=== PATIENT | female | born 1955 | race Caucasian/White ===

== ENCOUNTER → 2017-01-14 | Outpatient (CLI) | payer OTHER ==
[2017-01-14 12:54] LABS: CHOLESTEROL/HDL RATIO 8.3
== END | disposition home or self-care (01) ==
LOC: C.LABPBG 10:20
PROVIDERS: ATTEND Family Medicine
DX: E78.00 Pure hypercholesterolemia, unspecified (principal)

== ENCOUNTER → 2017-01-31 | Outpatient (CLI) | payer OTHER | END | disposition home or self-care (01) | LOC: C.CPL 18:03 | PROVIDERS: ATTEND Orthopaedic Surgery | DX: M19.042 Primary osteoarthritis, left hand (principal) ==

== ENCOUNTER 2019-06-05 10:07 | Inpatient (IN) ==
--- NOTE | 2019-05-21 11:03 | History & Physical Report ---
Date of Service May 21, 2019 date of surgery: 06-05-19 Assessment & Plan (1) Arthritis of right shoulder region: presents with continued pain in her right shoulder, had scope done 1 year ago with no improvement, has had previous cortisone injections and visco injections as well with no relief, we discussed her options, will proceed with right shoulder resurfacing hemiarthroplasty as well as left shoulder cortisone injection. Risks and benefits of the surgery discussed in detail, will plan on HHPT after discharge, f/u in the office 2 weeks post-op. she has no other questions or concerns. (2) Left shoulder pain: History of Present Illness Chief Complaint: Bilateral shoulder pain Primary Care Provider: Shawna Neely MD Ms Acuna is a 63 year old female who complains of bilateral shoulder pain, right greater than left, and presents for pre-op evaluation prior to a right shoulder resurfacing hemiarthroplasty and left shoulder cortisone injection at [facility]. She presents with pain and decreased ROM on the right side. She states that the symptoms have been chronic non-traumatic and her pain is constant. Currently the patient states that the symptoms are moderate-severe. The pain is described as aching and sharp. She rates her current pain as 8/10. The symptoms are aggravated by daily activities, driving, lifting away from the body, moving the arm suddenly, reaching overhead and repetitive activities. Prior NSAIDs include ibuprofen. 08-10-18: Right shoulder arthroscopic rotator cuff debridement of articular side cuff tear. she has failed conservative measures including cortisone injection as well as previous arthroscopy. she has also had previous Sample Visco injection. 2. left shoulder pain She also complains of pain on the left side and states that the symptoms have been chronic non-traumatic. Currently she states that the symptoms are moderate. The pain is described as aching and sharp. She rates her current pain as 6/10. The symptoms are aggravated by daily activities, lifting, lifting away from the body, moving the arm suddenly and reaching overhead. 07-05-18: Left shoulder arthroscopic subacromial decompression, Debridement of articular side rotator cuff tear, Distal clavicle excision Allergies Allergy/AdvReac Type Severity Reaction Status Date / Time atorvastatin [From Lipitor] Allergy Mild muscle Verified 05/21/19 09:14 aches simvastatin [From Zocor] Allergy Mild Rash Verified 05/21/19 09:14 Home Medications Home Medications Medication Instructions Recorded Confirmed Type lorazepam 0.5 mg tablet 0.5 mg PO DAILY PRN #30 tab 02/02/19 05/21/19 Rx citalopram 20 mg PO QAM 02/15/19 05/21/19 History hydrocodone-acetaminophen 1 tab PO Q6H PRN 02/15/19 05/21/19 History rosuvastatin 10 mg PO QAM 02/15/19 05/21/19 History omeprazole 40 mg capsule,delayed 40 mg PO DAILY #30 cap 03/10/19 05/21/19 Rx release Past Med/Surg History Medical History Anxiety Chronic back pain Depression GERD (gastroesophageal reflux disease) 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 (not sure what kind) [place] [facility] [place] Hyperlipidemia Osteoarthritis Surgical History History of appendectomy History of colonoscopy History of esophagogastroduodenoscopy (EGD) History of left knee surgery cancerous tumor removal History of repair of anterior cruciate ligament of right knee History of repair of left rotator cuff x2 History of repair of right rotator cuff x3 History of thumb surgery left, repair of torn tendon History of tooth extraction all teeth removed History of total hysterectomy with bilateral salpingo-oophorectomy (BSO) Family History Mother Myocardial infarction Elevated blood sugar Other No family history of adverse response to anesthesia Social History Preferred Language: Samoan Communication Ability: Effective Visual Impairment: No Limitations Hearing Ability: Normal 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 Person Required: No Beliefs That Will Affect Care: None marital status: / Current Living Situation: Alone current occupational status: retired and disabled Feels Safe at Home: Yes Smoking Status: Former smoker Second Hand Exposure: Yes (father smoked) ; Hx Alcohol Use: Yes Alcohol type: wine Alcohol Intake Frequency: Rarely Hx Substance Use: No Childhood Exposure to Second-Hand Smoke: Yes Dental Care, Regularly: No Physical Activity Frequency: Does not Exercise Seatbelt Use: always Review of Systems Review of Systems: All systems reviewed & are unremarkable except as noted in HPI & below Constitutional: no fever, no chills and no sweats Respiratory: no cough and no dyspnea Cardiovascular: no chest pain, no dyspnea and no orthopnea Gastrointestinal: no abdominal pain, no nausea and no vomiting Musculoskeletal: as per Subjective / HPI Physical Exam Physical Exam: Ht: 61 inches Wt: 170 lbs BP: 132/72 Pulse: 76 Constitutional: WD/WN, vitals as above no acute distress Respiratory: normal respiratory effort, lungs clear to auscultation no respiratory distress, no labored breathing and does not use accessory muscles Cardiovascular: RRR, no murmur, no edema Gastrointestinal (Abdomen): normal bowel sounds, soft, nontender, no hepatosplenomegaly Musculoskeletal: Right Shoulder Physical Exam Elbow- full painless range of motion, no tenderness. Shoulder: there is no ecchymosis, positive Crepitation with active motion, Tenderness anterior aspect shoulder and AC joint. Belly press - Positive. Patton Positive. Cross Body Positive. Neer's - positive. Strength tests - External rotation 4/5, Supraspinatus 4/5 no atrophy, Right shoulder ROM: Active ROM - Flexion: 120 degrees, Ext Rot 90 Flex: 30 degrees, Abduction: 45 degrees, Factors: pain, Description: Pain with ROM. Passive ROM - Factors: pain. Neurovascular- Radial pulse palpable, radial/median/ulnar nerves intact. Left Shoulder- there is no ecchymosis or erythema noted, no crepitation with active motion, Tenderness anterior aspect shoulder, subacromial space and the AC joint. Belly press - Positive. Patton Positive. Cross Body Positive. Neer's - positive. Strength tests - External rotation 4/5, Supraspinatus 4/5 no atrophy ROM left shoulder- Active ROM - Flexion: 120 degrees, Ext Rot 90 Flex: 30 degrees, Abduction: 45 degrees, Factors: pain, Description: Pain with ROM. Passive ROM - Flexion 170 degrees, ER at 90 de degrees, pain with end range passive ROM. Results & Data Diagnostic Findings Right shoulder X-ray April 2019 showing degenerative changes noted to the right glenohumeral joint, osteophyte formation present. no acute bony pathology.
--- NOTE | 2019-05-28 15:14 | PAT Medication Instructions ---
Medication Instructions Date of Service May 28, 2019 Home Medications citalopram 20 mg PO QAM hydrocodone-acetaminophen 1 tab PO UD PRN rosuvastatin 10 mg PO QAM ibuprofen 400 mg PO UD PRN lorazepam 0.5 mg PO UD PRN omeprazole 40 mg PO QAM ASK your surgeon for instructions ibuprofen 400 mg PO UD PRN Take morning of surgery With a small sip of water, OTHERWISE NOTHING TO EAT OR DRINK AFTER MIDNIGHT: citalopram 20 mg PO QAM hydrocodone-acetaminophen 1 tab PO UD PRN (okay to take up to 4 hours prior to surgery if needed) rosuvastatin 10 mg PO QAM lorazepam 0.5 mg PO UD PRN (if needed) omeprazole 40 mg PO QAM Take evening before surgery hydrocodone-acetaminophen 1 tab PO UD PRN (if needed) lorazepam 0.5 mg PO UD PRN (if needed) Other Notes If you have any questions please call us at [phone] or [phone] or [phone] or [phone]
--- NOTE | 2019-05-29 14:04 | Anesthesiology Consultation ---
Date of Service May 29, 2019 Assessment & Plan (1) Encounter for pre-operative examination: PCP: 05/21/19: "The preoperative labs and EKG are pending and not yet available to be reviewed. Pending results will then determine cardiopulmonary risk for the planned procedure and if pt is okay to proceed as scheduled." Preop EKG used from 03/2019 at [facility]. Preop labs/CXR updated at PAT visit. Chart Review Chart Review: Acceptable Risk for Surgery (pending final PCP preop recommendations ([facility])) and Patient seen in Pre Admission Testing Teaching & Discussion Pre-Anesthesia Teaching/Discussion Notes: Instructed NPO after midnight before surgery,except medications with 15 cc of water. Medication instructions provided according to the [facility] guidelines. History Surgery Operation Date: 06/05/19 13:55 Proposed Procedures p Right Shoulder Tournier Resurfacing versus Hemiarthroplasty versus - Dom Brewster DO s Total Shoulder Arthroplasty, Left Shoulder Cortisone Injection - Dom Brewster DO Height/Weight Height: 5 ft 1 in Weight: 81.4 kg Allergies Allergy/AdvReac Type Severity Reaction Status Date / Time simvastatin [From Zocor] Allergy Unknown Rash Verified 05/25/19 14:01 atorvastatin [From Lipitor] AdvReac Unknown muscle Verified 05/25/19 14:01 aches oxycodone AdvReac Unknown Headache Verified 05/25/19 14:01 Medications Home Medications Medication Instructions Recorded Confirmed Last Taken citalopram 20 mg PO QAM 02/15/19 05/25/19 02/27/19 08:00 hydrocodone-acetaminophen 1 tab PO UD PRN 02/15/19 05/25/19 Unknown rosuvastatin 10 mg PO QAM 02/15/19 05/25/19 02/27/19 08:00 ibuprofen 400 mg PO UD PRN 05/25/19 05/25/19 Unknown lorazepam 0.5 mg PO UD PRN 05/25/19 05/25/19 Unknown omeprazole 40 mg PO QAM 05/25/19 05/25/19 Unknown Past Medical History Medical History Anxiety Chronic back pain Depression GERD (gastroesophageal reflux disease) controlled 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 (not sure what kind) removed at [facility] [place]--no chemo/radiation Hyperlipidemia Obesity Osteoarthritis Exercise / Class Metabolic Activity II 4-5 Yardwork/Stairs/Walk up hill Past Family History Family History Mother Myocardial infarction Elevated blood sugar Other No family history of adverse response to anesthesia Past Surgical History Surgical History History of appendectomy History of colonoscopy History of esophagogastroduodenoscopy (EGD) History of left knee surgery cancerous tumor removal History of repair of anterior cruciate ligament of right knee History of repair of left rotator cuff x2 History of repair of right rotator cuff x3 History of thumb surgery left, repair of torn tendon History of tooth extraction all teeth removed History of total hysterectomy with bilateral salpingo-oophorectomy (BSO) Past Anesthesia History No Hx of Anesthesia Complications and No Family Hx of Anesthesia Complications History of PONV No Hx of PONV and No Hx of Motion Sickness Social History Smoking Status: Former smoker Do You Dip or Chew Tobacco: No Smoking End Date: Quit 30+ YRS Hx Alcohol Use: Yes (RARE) Alcohol type: wine alcohol intake frequency: holidays/special occasions only Hx Substance Use: No substance use type: prescription drug Review of Systems Patient denies chest pain, shortness of breath, dyspnea on exertion, cough, wheezing, palpitations. Physical Exam Vital Signs VITALS BP 131/79 P 71 TEMP 97.9 SP02 95%RA RESP 18 PHYSICAL Full neck and c-spine range of motion. Full TMJ range of motion. TMD 3 finger breaths Mallampati Score 2 Dentition: upper/lower full dentures Lungs: clear throughout to auscultation Cardiac: regular rate and rhythm, no murmurs noted Spine: normal Carotid arteries: negative bruit Extremities: no edema Testing Laboratory Results PT 9.8 Seconds (9.0-12.0) 05/29/19 14:19 INR 1.0 (0.9-1.1) 05/29/19 14:19 APTT 26.2 Seconds (21.0-31.0) 05/29/19 14:19 Hemoglobin A1c 6.0 % (4.5-5.6) H 05/29/19 14:19 Urine Color Yellow 05/29/19 14:19 Urine Appearance Clear (Clear) 05/29/19 14:19 Urine pH 5.5 (4.5-7.5) 05/29/19 14:19 Ur Specific Gordon 1.023 (1.000-1.030) 05/29/19 14:19 Urine Protein Negative (Negative) 05/29/19 14:19 Urine Glucose (UA) Negative (Negative) 05/29/19 14:19 Urine Ketones Negative (Negative) 05/29/19 14:19 Urine Nitrite Negative (Negative) 05/29/19 14:19 Ur Leukocyte Esterase Negative (Negative) 05/29/19 14:19 Blood Type O Positive 05/29/19 14:19 Antibody Screen NEGATIVE 05/29/19 14:19 04/17/19 WBC 5.18 H/H 14.2/42.7 PLATELETS 256 SODIUM 140 POTASSIUM 3.6 CHLORIDE 108 CO2 30 BUN 8 CREATININE 0.84 GLUCOSE 118 Electrocardiogram Date: 04/17/19 Findings: + NSR @ (62) Chest X-Ray Date: 05/29/19 Findings: + NAD
--- NOTE | 2019-05-29 14:42 | XRay Report ---
XR chest Pre-admission PA/Lat HISTORY: 63 years-old Female pat preoperative exam. No acute chest complaints COMPARISON: Chest radiograph 04/17/2019 TECHNIQUE: PA and lateral views of the chest FINDINGS: Cardiomediastinal and hilar silhouettes are unchanged. There is no pneumothorax, pleural effusion, fo ronak airspace consolidation or overt pulmonary edema. Bones of the chest appear grossly intact. IMPRESSION: No acute process. ACT 112: Negative or not required by law. The above report was generated using voice recognition software. It may contain grammatical, syntax o r spelling errors. Electronically signed by: Jomar Kearney M.D. 05/29/2019 2:41 PM
[2019-05-29 15:35] LABS: Appearance Urine Clear (Clear); Bilirubin Urine Negative (Negative); Blood Urine Negative (Negative); Color Urine Yellow; Glucose Urine UA Negative (Negative); Ketones Urine Negative (Negative); Leukocyte Esterase Urine Negative (Negative); Nitrite Urine Negative (Negative); Protein Urine Negative (Negative); Specific Gravity Urine 1.023 (1.000-1.030); Urobilinogen Urine Negative (Negative); pH Urine 5.5 (4.5-7.5)
[2019-05-29 15:51] LABS: Partial Thromboplastin Time 26.2 Seconds (21.0-31.0); Prothrombin Time 9.8 Seconds (9.0-12.0)
[2019-05-30 05:50] LABS: Estimated Average Glucose 126 mg/dl
[~2019-06-05 10:07] MED LIST: ACETAMINOPHEN 500 MG TAB PO SCH; CEFAZOLIN 2000MG 2,000 MG/15 ML SYR IV SCH; CeleBREX 200 MG CAP PO SCH; FAMOTIDINE 20 MG TAB PO SCH; GABAPENTIN 600 MG DOSE PO SCH; LR 15ML/HR IV SCH; METOCLOPRAMIDE HCL 10 MG TABLET PO SCH; ROPIVACAINE 0.5% 5 MG/ML 30 ML VIAL ONE; ROPIVACAINE 0.5% HCL/PF 150 MG, BUPIVACAINE 0.5% MPF 30 ML, EPINEPHrine 30MG/30ML (OR U... INSTIL SCH; dexAMETHasone 4 MG TAB PO SCH
--- NOTE | 2019-06-05 11:17 | History & Physical Bridge Note ---
Date of Service June 05, 2019 History & Physical Bridge Note I have examined the patient, reviewed the History & Physical and in the interval since the performance of the History & Physical I have noted the following changes of clinical significance: no changes noted
[2019-06-05] MEDS ORDERED: BACITRACIN INJ 50,000 UNIT VIAL ONE ×2 (11:55→12:02)
[2019-06-05] MEDS ORDERED: THROMBIN FOR SOLN 20000 UNIT KIT ONE (11:55)
[2019-06-05] MEDS ORDERED: BUPIVACAINE 0.25% 30 ML VIAL ONE (12:01)
[2019-06-05] MEDS ORDERED: LIDOCAINE HCL 1% 20 ML VIAL ONE (12:01)
[2019-06-05] MEDS ORDERED: methylPREDNISolone acetate 80 MG/ML VIAL ONE (12:02)
[2019-06-05] MEDS ORDERED: ROCURONIUM BROMIDE 10 MG/ML 5 ML VIAL ONE (12:06)
[2019-06-05] MEDS ORDERED: MIDAZOLAM HCL 1 MG/ML 2ML VIAL ONE (12:06)
[2019-06-05] MEDS ORDERED: ONDANSETRON INJ 2 MG/ML 2 ML VIAL ONE (12:06)
[2019-06-05] MEDS ORDERED: DEXAMETHASONE SOD INJ 4 MG/ML VIAL ONE (12:06)
[2019-06-05] MEDS ORDERED: PROPOFOL IV EMULSION 10 MG/ML 20 ML VIAL IV ONE (12:06)
[2019-06-05] MEDS ORDERED: LIDOCAINE HCL 2% 2 ML VIAL/AMP(20MG/ML) INFIL ONE (12:06)
[2019-06-05] MEDS ORDERED: fentaNYL citrate 100 MCG/2 ML VIAL ONE (12:06)
[2019-06-05] MEDS ORDERED: ONDANSETRON INJ 2 MG/ML 2 ML VIAL IV PRN ×2 (12:29→16:37)
[2019-06-05] MEDS ORDERED: LABETALOL HCL IV 5 MG/ML 20ML IV PRN (12:29)
[2019-06-05] MEDS ORDERED: ATROPINE SULFATE 0.1 MG/ML 10ML SYR IV PRN (12:29)
[2019-06-05] MEDS ORDERED: KETOROLAC 30 MG/ML VIAL IV PRN (12:29)
[2019-06-05] MEDS ORDERED: FLOSEAL HEMOSTATIC MATRIX 10ML TOP ONE (14:27)
--- NOTE | 2019-06-05 14:43 | Operative Report ---
Post Operative Report Pre & Post Diagnosis Operation Date: 06/05/19 12:45 Pre-Op Diagnosis: RIGHT SHOULDER OSTEOARTHRITIS, LEFT SHOULDER PAIN Post-Op Diagnosis: RIGHT SHOULDER OSTEOARTHRITIS, LEFT SHOULDER PAIN I identified the patient and participated in the time-out.: Yes Procedure Operation Date: 06/05/19 12:45 Actual Procedures p Right Shoulder Tornier Resurfacing (Right) - Dom Brewster DO s Right Shoulder Resurfacing; Left Shoulder Cortisone Injection(Right) utilizing Tournier resurfacing hemiarthroplasty 43 x 16- Dom Brewster DO Surgeon Dom Brewster DO Data Analysis Assistant DEVANTE Manley Estimated Blood Loss 40 Findings Consistent with Post-Op Diagnosis Patient presents with glenohumeral DJD right shoulder nonresponsive to conservative management with injections Visco therapy and cortisone Visco supplementation as a time surgery she had marginal osteophytes eburnated down to eburnated bone on the humeral head the glenoid articular cartilage was in satisfactory condition decision made to perform a hemiarthroplasty. Specimens Bone and cartilage Drains Medium bore Hemovac Anesthesia Type General Regional Complications none Disposition Accompanied Patient To Recovery: No Disposition: Recovery Room Indications Patient presents with glenohumeral DJD right shoulder after failed attempts at the conservative management with physical therapy anti-inflammatories relative rest corticosteroid injection Visco supplementation and activity modification the above intraoperative findings no time surgery Description of Procedure After proper prepping draping the right shoulder region a deltopectoral incision was made dissection was then carried down to the region of deltopectoral interval the cephalic vein was isolated and was subsequently retracted lateralward's after ligation of several collateralized vessels that were penetrating medially the these were tied off with silk ties having developed the deltopectoral interval the fascia was incised the glenohumeral joint was palpated the subscapularis that was reflected off of the humeral head and retracted towards the glenoid the humeral head was socially delivered from the wound inferior posterior anterior osteophytes were all removed humeral head was inspected as was the glenoid the labrum was inspected and was in satisfactory condition subsequently having thoroughly irrigated the wound the trials of a size 43 x 16 gave anatomic fit and coverage of the head subsequently a pin was placed through the humeral head guide the right was reversed reamed to bleeding bone trial was placed excellent stability was noted in both flexion extension internal/external rotation socially the wound was irrigated once again with close muscle sterile saline solution to take as hemostasis was obtained and maintained patient had a a little bit of oozing from her bone surface of the this was all irrigated subsequently the final prosthesis brought on the field after placing three #5 FiberWire through the arch to the cortical surface of the proximal humerus out through the humeral head the humeral head sub-was subsequ ently placed and tapped into place with solid fixation the wound was irrigated the humeral head was reduced to the subscapularis tendons repaired back to the humeral head the wound was irrigated with copious muscle sterile saline solution thickness hemostasis obtained to maintain some FloSeal was placed in a deep wound decision generalized use although no active bleeding was noted the wound have been thoroughly irrigated deep medium bore Hemovacs placed in the deep wound the deltopectoral interval was closed with #0 Vicryl subcu was closed with 3-0 Vicryl skin was closed skin clips sterile compressive dressings placed in shoulder immobilizer placed please note Aston DEVANTE Bean was necessary prepping draping retraction wound closure defect subcu skin was necessary for the case I attest to the content of the Intraoperative Record and any orders documented therein. Any exceptions are noted below.
[2019-06-05] MEDS: HYDROmorphone INJ 1 MG/ML SYRINGE IV PRN ×4 (15:41→15:56)
--- NOTE | 2019-06-05 15:46 | XRay Report ---
XR shoulder RT min 2V routine CLINICAL HISTORY: 63 years-old Female presenting with Post shoulder surgery. TECHNIQUE: Frontal and transscapular Y views of the right shoulder were obtained. COMPARISON: 04/17/2019. FINDINGS: There has been interval right shoulder arthroplasty with placement of a humeral head component. Chron ic widening of the acromioclavicular joint. No acute fracture or malalignment. No malalignment of the arthroplasty. No periprosthetic fracture. ML opacities at the right lung base with overall low lung volume. IMPRESSION: 1. Expected postsurgical appearance status post right shoulder arthroplasty. 2. Chronic right AC joint separation. 3. Right basilar atelectasis in the setting of low lung volume. ACT 112: Negative or not required by law. Electronically signed by: Donovan Yeager M.D. 06/05/2019 3:45 PM
--- NOTE | 2019-06-05 16:00 | Anesthesiology Progress Note ---
Date of Service June 05, 2019 Anesthesia Post Procedure Vital Signs Vital Signs: Temp Pulse Pulse Resp BP Pulse Ox 06/05/19 15:45 81 12 105/69 94 06/05/19 15:35 36.9 C 81 14 123/74 93 06/05/19 15:25 85 16 136/74 95 06/05/19 15:15 87 17 140/77 95 06/05/19 15:07 36.6 C 93 H 16 152/98 H 93 06/05/19 10:30 36.5 C 68 20 160/97 H 94 Pain Intensity Right Shoulder: Pain Intensity: 7 Transfer of Care Handoff Completed per policy Notes Mental Status: alert / awake / arousable and participated in evaluation Patient Amnestic to Procedure: Yes Nausea / Vomiting: adequately controlled Pain: adequately controlled Airway Patency, RR, SpO2: stable & adequate BP & HR: stable & adequate Hydration State: stable & adequate Anesthetic Complications: no major complications apparent
[2019-06-05] MEDS ORDERED: NALOXONE HCL 0.4 MG/1 ML VIAL/CARP IV PRN (16:37)
[2019-06-05] MEDS ORDERED: bisacodyL 10 MG SUPP PR PRN (16:37)
[2019-06-05] MEDS ORDERED: METOCLOPRAMIDE HCL INJ 5 MG/ML 2 ML VIAL IV PRN (16:37)
[2019-06-05] MEDS ORDERED: LORazepam 0.5 MG TAB PO PRN (16:37)
[2019-06-05] MEDS ORDERED: MAGNESIUM HYDROXIDE SUSP 30 ML UDC PO PRN (16:37)
[2019-06-05] MEDS ORDERED: ALUMINUM/MAGNESIUM SUSP 30 ML UDC PO PRN (16:37)
[2019-06-05] MEDS: KETOROLAC TROMETHAMINE 15 MG/ML VIAL IV SCH ×2 (17:58→23:40)
[2019-06-05] MEDS: DOCUSATE SODIUM 100 MG CAP PO SCH (20:55)
[2019-06-05] MEDS: SENNA 8.6 MG TAB PO SCH (20:55)
[2019-06-05] MEDS: ASPIRIN 81 MG ECTAB PO SCH (20:55)
[2019-06-05] MEDS: CEFAZOLIN 2000MG 2,000 MG/15 ML SYR IV SCH (20:55)
[2019-06-05] MEDS: SODIUM CHLORIDE 0.9% 1000ML 1,000 ML IV SCH (21:32)
[2019-06-06] MEDS: HYDROCODONE/ACETAMOPHEN 5/325MG TAB PO PRN ×6 (00:50→23:19)
[2019-06-06] MEDS: KETOROLAC TROMETHAMINE 15 MG/ML VIAL IV SCH ×2 (04:54→11:01)
[2019-06-06] MEDS: CEFAZOLIN 2000MG 2,000 MG/15 ML SYR IV SCH (04:55)
[2019-06-06 05:50] LABS: Hematocrit (blood only) 38.9 % (37-47); Hemoglobin 12.7 g/dL (12.0-16.0); Immature Granulocytes # (auto) 0.02 K/uL (0.00-0.02); Immature Granulocytes % (auto) 0.2 %; Lymphocytes # (auto) 1.12 K/uL (1.2-3.4); Lymphocytes % (auto) 10.7 %; Mean Corpuscular Hemoglobin 29.3 pg (25-34); Mean Corpuscular Hgb Conc 32.6 g/dL (32-36); Mean Corpuscular Volume 89.6 fL (80-100); Mean Platelet Volume 9.5 fL (7.4-10.4); Monocytes # (auto) 0.92 K/uL (0.11-0.59); Monocytes % (auto) 8.8 %; Neutrophils # (auto) 8.37 K/uL (1.4-6.5); Neutrophils % (auto) 80.3 %; Platelet Count 267 K/uL (130-400); RDW Coefficient of Variation 12.9 % (11.5-14.5); RDW Standard Deviation 42.5 fL (36.4-46.3); Red Blood Count 4.34 M/uL (4.2-5.4); White Blood Count 10.43 K/uL (4.8-10.8)
[2019-06-06] MEDS: SODIUM CHLORIDE 0.9% 1000ML 1,000 ML IV SCH (06:07)
[2019-06-06 06:21] LABS: BUN Creatinine Ratio 12.6 (10-20); Calcium 8.2 mg/dl (8.5-10.1); Creatinine Clr Calc Pharmacy 47.7 ml/min; Est GFR (African American) 58.2; Est GFR (Non-African American) 50.2; Potassium 4.6 mmol/L (3.5-5.1)
--- NOTE | 2019-06-06 07:12 | Orthopedic Progress Note ---
Date of Service June 06, 2019 Assessment & Plan (1) Status post right shoulder hemiarthroplasty: POD #1 s/p right shoulder resurfacing PT/OT will discuss with FLAIVO randolph HHPT O2 sats in the high 80s last evening on RA, now on 2L NC, will see how she responds after supp oxygen is d/c for pending d/c today. Admission and Anticipated Discharge Date Admission Date: June 05, 2019 Subjective POD #1 s/p right shoulder resurfacing and left shoulder cortisone injection Review of Systems Constitutional: no fever and no chills Respiratory: no cough and no dyspnea Cardiovascular: no chest pain, no dyspnea and no orthopnea Gastrointestinal: no abdominal pain, no nausea and no vomiting Physical Exam Physical Exam: Vital Signs Temp 36.8 C 06/06/19 03:38 Pulse 77 06/06/19 03:38 Resp 18 06/06/19 03:38 BP 122/68 06/06/19 03:38 Pulse Ox 93 06/06/19 03:53 Intake & Output 06/05/19 06/06/19 06/06/19 18:59 06:59 18:59 Intake Total 1600 / 3066.667 1466.667 / 3066.66 7 Output Total 40 / 590 550 / 590 Balance 1560 / 2476.667 916.667 / 2476.667 Weight 81.2 kg Intake: IV 300 / 1046.667 746.667 / 1046.667 Lr 1,000 ml @ 15 mls/hr IV . 300 / 300 Q24H SABIHA Rx#:[id number] Nss 1000ML 1,0 00 ml @ 100 mls/ 746.667 / 746.667 hr IV .Q10H SC H Rx#:[id number] IV Perioperative 1300 / 1300 Oral 200 / 200 Other 520 / 520 Output: Urine 550 / 550 Estimated Blood Loss 40 / 40 Other: Other Intake Martha rce IV Fluids Constitutional: WD/WN, vitals as above no acute distress Musculoskeletal: right shoulder: Dressing clean and dry, resting in sling. rad/med/ulnar nerves intact distally, radial pulse +2, able to flex/extend elbow and wrist without pain. Results & Data ([facility]) Vital Signs (Past 12 Hours) Vital Signs Temp Pulse Resp BP Pulse Ox 06/06/19 03:53 93 06/06/19 03:38 36.8 C 77 18 122/68 90 06/06/19 01:16 92 06/06/19 01:15 88 L 06/06/19 00:44 90 06/05/19 23:28 36.7 C 89 17 103/68 91 06/05/19 19:54 104 H 90 06/05/19 19:30 36.7 C 104 H 16 109/68 91 Laboratory Results Laboratory Results WBC 10.43 K/uL (4.8-10.8) 06/06/19 05:23 RBC 4.34 M/uL (4.2-5.4) 06/06/19 05:23 Hgb 12.7 g/dL (12.0-16.0) 06/06/19 05:23 Hct 38.9 % (37-47) 06/06/19 05:23 MCV 89.6 fL (80-100) 06/06/19 05:23 MCH 29.3 pg (25-34) 06/06/19 05:23 MCHC 32.6 g/dL (32-36) 06/06/19 05:23 RDW Std Deviation 42.5 fL (36.4-46.3) 06/06/19 05:23 RDW Coeff of Jenna 12.9 % (11.5-14.5) 06/06/19 05:23 Plt Count 267 K/uL (130-400) 06/06/19 05:23 MPV 9.5 fL (7.4-10.4) 06/06/19 05:23 Immature Gran % (Auto) 0.2 % 06/06/19 05:23 Neut % (Auto) 80.3 % 06/06/19 05:23 Lymph % (Auto) 10.7 % 06/06/19 05:23 [place] % (Auto) 8.8 % 06/06/19 05:23 Eos % (Auto) 0.0 % 06/06/19 05:23 Baso % (Auto) 0.0 % 06/06/19 05:23 Immature Gran # (Auto) 0.02 K/uL (0.00-0.02) 06/06/19 05:23 Neut # (Auto) 8.37 K/uL (1.4-6.5) H 06/06/19 05:23 Lymph # (Auto) 1.12 K/uL (1.2-3.4) L 06/06/19 05:23 [place] # (Auto) 0.92 K/uL (0.11-0.59) H 06/06/19 05:23 Eos # (Auto) 0.00 K/uL (0-0.5) 06/06/19 05:23 Baso # (Auto) 0.00 K/uL (0-0.2) 06/06/19 05:23 PT 9.8 Seconds (9.0-12.0) 05/29/19 14:19 INR 1.0 (0.9-1.1) 05/29/19 14:19 APTT 26.2 Seconds (21.0-31.0) 05/29/19 14:19 PTT Ratio 1.0 05/29/19 14:19 Sodium 136 mmol/L (136-145) 06/06/19 05:23 Potassium 4.6 mmol/L (3.5-5.1) 06/06/19 05:23 Chloride 105 mmol/L (98-107) 06/06/19 05:23 Carbon Dioxide 27 mmol/L (21-32) 06/06/19 05:23 Anion Gap 4.0 (3-11) 06/06/19 05:23 BUN 15 mg/dl (7-18) 06/06/19 05:23 Creatinine 1.15 mg/dl (0.6-1.2) 06/06/19 05:23 Est Cr Clr Drug Dosing 47.7 ml/min 06/06/19 05:23 Est GFR ( Amer) 58.2 06/06/19 05:23 Est GFR (Non-Af Amer) 50.2 06/06/19 05:23 BUN/Creatinine Ratio 12.6 (10-20) 06/06/19 05:23 Glucose 129 mg/dl (70-99) H 06/06/19 05:23 Estimat Average Glucose 126 mg/dl 05/29/19 14:19 Hemoglobin A1c 6.0 % (4.5-5.6) H 05/29/19 14:19 Calcium 8.2 mg/dl (8.5-10.1) L 06/06/19 05:23 Urine Color Yellow 05/29/19 14:19 Urine Appearance Clear (Clear) 05/29/19 14:19 Urine pH 5.5 (4.5-7.5) 05/29/19 14:19 Ur Specific [place] 1.023 (1.000-1.030) 05/29/19 14:19 Urine Protein Negative (Negative) 05/29/19 14:19 Urine Glucose (UA) Negative (Negative) 05/29/19 14:19 Urine Ketones Negative (Negative) 05/29/19 14:19 Urine Blood Negative (Negative) 05/29/19 14:19 Urine Nitrite Negative (Negative) 05/29/19 14:19 Urine Bilirubin Negative (Negative) 05/29/19 14:19 Urine Urobilinogen Negative (Negative) 05/29/19 14:19 Ur Leukocyte Esterase Negative (Negative) 05/29/19 14:19 Blood Type O Positive 05/29/19 14:19 Antibody Screen NEGATIVE 05/29/19 14:19 Diagnostic Findings XR shoulder RT min 2V routine CLINICAL HISTORY: 63 years-old Female presenting with Post shoulder surgery. TECHNIQUE: Frontal and transscapular Y views of the right shoulder were obtained. COMPARISON: 04/17/2019. FINDINGS: There has been interval right shoulder arthroplasty with placement of a humeral head component. Chronic widening of the acromioclavicular joint. No acute fracture or malalignment. No malalignment of the arthroplasty. No periprosthetic fracture. ML opacities at the right lung base with overall low lung volume. IMPRESSION: 1. Expected postsurgical appearance status post right shoulder arthroplasty. 2. Chronic right AC joint separation. 3. Right basilar atelectasis in the setting of low lung volume.
--- NOTE | 2019-06-06 07:40 | Anesthesiology Progress Note ---
Date of Service June 06, 2019 Anesthesia Post Procedure Vital Signs Vital Signs: Temp Pulse Pulse Pulse Resp BP Pulse Ox 06/06/19 03:53 93 06/06/19 03:38 36.8 C 77 18 122/68 90 06/06/19 01:16 92 06/06/19 01:15 88 L 06/06/19 00:44 90 06/05/19 23:28 36.7 C 89 17 103/68 91 06/05/19 19:54 104 H 90 06/05/19 19:30 36.7 C 104 H 16 109/68 91 06/05/19 18:26 36.7 C 110 H 17 112/66 93 06/05/19 17:20 36.8 C 114 H 17 127/74 92 06/05/19 16:49 85 14 111/76 93 06/05/19 16:20 37 C 95 H 14 112/78 95 06/05/19 16:05 87 18 126/80 93 06/05/19 15:55 95 H 16 133/72 92 06/05/19 15:45 81 12 105/69 94 06/05/19 15:35 36.9 C 81 14 123/74 93 06/05/19 15:25 85 16 136/74 95 06/05/19 15:15 87 17 140/77 95 06/05/19 15:07 36.6 C 93 H 16 152/98 H 93 06/05/19 10:30 36.5 C 68 20 160/97 H 94 Pain Intensity Right Shoulder: Pain Intensity: 4 Notes Mental Status: alert / awake / arousable Patient Amnestic to Procedure: Yes Nausea / Vomiting: adequately controlled Pain: adequately controlled Airway Patency, RR, SpO2: stable & adequate BP & HR: stable & adequate Hydration State: stable & adequate Anesthetic Complications: no major complications apparent and Pt Satisfied with anesthetic care
[2019-06-06] MEDS: ROSUVASTATIN CALCIUM 10 MG TAB PO SCH (08:42)
[2019-06-06] MEDS: MULTIVITAMIN TAB PO SCH (08:42)
[2019-06-06] MEDS: DOCUSATE SODIUM 100 MG CAP PO SCH ×2 (08:42→20:05)
[2019-06-06] MEDS: CITALOPRAM 20 MG TAB PO SCH (08:43)
[2019-06-06] MEDS: ASPIRIN 81 MG ECTAB PO SCH ×2 (08:43→20:05)
[2019-06-06] MEDS ORDERED: Nursing to Pharmacy Communication ONE (09:28)
[2019-06-06] MEDS ORDERED: COUGH DROP (SUGAR FREE) LOZ 24 LOZ/1 BOX BUCCAL PRN (09:41)
[2019-06-06] MEDS: HYDROmorphone INJ 1 MG/ML SYRINGE IV PRN ×2 (12:37→16:25)
[2019-06-06] MEDS ORDERED: ACETYLCYSTEINE 20% INHAL SOLN 30ML***DISPENSED BY RESP. INH ONE (16:03)
[2019-06-06] MEDS ORDERED: ALBUT/IPRATROP 3MG/0.5MG NEB 3 ML VIAL NEB STA (16:03)
[2019-06-06] MEDS ORDERED: ALBUT/IPRATROP 3MG/0.5MG NEB 3 ML VIAL NEB PRN (16:04)
--- NOTE | 2019-06-06 16:15 | Hospitalist Consultation ---
Date of Consultation June 06, 2019 Assessment & Plan (1) Hypoxia: Hb stable, PRP WNL Possibly related to respiratory depression from increased use of narcotic pain medication Hx of tobacco use, non-smoker for >30 yrs--possibly an underlying element of COPD Nebs x1 + mucomyst, PRN nebs after CXR pending given recent post-op status CXR neg for acute on 05/29 Ongoing IS VSS otherwise making PE less likely, no chest pain--holding on CTA for now Pt has aspirin 81mg listed on home meds, states she did not take this [employer]OCIATE Pt also has cefadroxil listed, denies recent abx use or c/o infection (2) Status post right shoulder hemiarthroplasty: s/p R shoulder surgery on 06/[address] Brewster As per ortho (3) Left shoulder pain: s/p L shoulder cortisone injection on 06/[address] Brewster (4) Hypercholesterolemia: continue home meds (5) Depression with anxiety: continue home meds (6) Acid reflux disease: continue home meds (7) DVT prophylaxis: As per ortho History of Present Illness Attending Physician: Dom Brewster DO History of Present Illness 63 y/o F who was admitted on 06/05 s/p R shoulder surgery and L shoulder cortisone injection with Dr. Brewster. Pt is overall doing well post-op, however she has been having some SOB with exertion with O2 sats dropping to 88% on RA with ambulation. She states she has been using her IS frequently and regularly, trying to achieve the 10x/hour goal. She states she has been able to "get it to the top" most of the time. She states she had a coughing episode a bit ago and "felt like something broke loose" but she couldn't bring it up. No prior hx of breathing issues. Tolerating PO without issue. Pt denies fever, chest pain, abd pain, n/v/c/d, LE swelling or pain. Pt notes that she has been having increased pain and using more of the narcotic pain medication today. Nursing states that the O2 sats are lower after her pain medications. Pt does have oxycodone at home for PRN use prior to the OR, but that she rarely uses it. She states she relies on ibuprofen for daily use and the oxycodone only "if it is really bad". Allergies Allergy/AdvReac Type Severity Reaction Status Date / Time simvastatin [From Zocor] Allergy Unknown Rash Verified 06/05/19 10:24 atorvastatin [From Lipitor] AdvReac Unknown muscle Verified 06/05/19 10:24 aches oxycodone AdvReac Unknown Headache Verified 06/05/19 10:24 Home Medications Home Medications Medication Instructions Recorded Confirmed Type citalopram 20 mg PO QAM 02/15/19 06/05/19 History hydrocodone-acetaminophen 1 tab PO UD PRN 02/15/19 06/05/19 History ibuprofen 400 mg PO UD PRN 05/25/19 06/05/19 History lorazepam 0.5 mg PO UD PRN 05/25/19 06/05/19 History omeprazole 40 mg PO QAM 05/25/19 06/05/19 History rosuvastatin 10 mg tablet 10 mg PO DAILY #90 tab 06/04/19 06/05/19 Rx aspirin [Ecotrin Low Strength] 81 mg PO BID 30 Days #60 tab 06/06/19 Rx cefadroxil 500 mg PO BID 10 Days #20 cap 06/06/19 Rx celecoxib [Celebrex] 200 mg PO BID 30 Days #60 cap 06/06/19 Rx docusate sodium 100 mg PO BID 10 Days #20 cap 06/06/19 Rx hydrocodone-acetaminophen [[place]] 1 - 2 tab PO Q6H PRN #30 tab 06/06/19 Rx Patient History Medical History Anxiety Chronic back pain Depression GERD (gastroesophageal reflux disease) controlled 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 (not sure what kind) removed at [facility]--no chemo/radiation Hyperlipidemia Obesity Osteoarthritis Surgical History History of appendectomy History of colonoscopy History of esophagogastroduodenoscopy (EGD) History of left knee surgery cancerous tumor removal History of repair of anterior cruciate ligament of right knee History of repair of left rotator cuff x2 History of repair of right rotator cuff x3 History of thumb surgery left, repair of torn tendon History of tooth extraction all teeth removed History of total hysterectomy with bilateral salpingo-oophorectomy (BSO) Family History Mother Myocardial infarction Elevated blood sugar Other No family history of adverse response to anesthesia Denies family history of Ovarian cancer Prostate cancer Breast cancer Colorectal cancer Social History Preferred Language: Belgian Communication Ability: Effective Visual Impairment: No Limitations Hearing Ability: Normal 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 Beliefs That Will Affect Care: Gnosticism Gnosticism Beliefs: BUDDHISM marital status: / Current Living Situation: Alone current occupational status: retired and disabled Other Information That Helps Us Care for You: No Feels Safe at Home: Yes Smoking Status: Former smoker Do You Dip or Chew Tobacco: No ; Smoking End Date: Quit 30+ YRS ; Second Hand Exposure: Yes (father smoked) ; Hx Alcohol Use: Yes (RARE) Alcohol type: wine Alcohol Intake Frequency: Rarely Hx Substance Use: No Childhood Exposure to Second-Hand Smoke: Yes Dental Care, Regularly: No Physical Activity Frequency: Does not Exercise Seatbelt Use: always Review of Systems Review of Systems: Pertinent positives and negatives reviewed in HPI--all others negative Physical Exam Constitutional: WD/WN, vitals as above Eyes: normal visual nam by confrontation and + anicteric sclerae Neck: normal visual inspection and trachea midline Respiratory: normal respiratory effort; no respiratory distress Auscultation: + diminished lung sounds; no crackles and no wheezes Poor inspiratory effort due to pain Cardiovascular: Rate/Rhythm: regular rate and regular rhythm Gastrointestinal (Abdomen): Inspection/Auscultation: abdomen not distended Percussion/Palpation: abdomen soft; abdomen nontender Musculoskeletal: Head/Neck/Chest: normocephalic and head atraumatic negative for edema, peripheral pulses intact Skin: no rashes, warm and dry Neurologic: awake; not confused Speech / Cognition: normal speech Psychiatric: A+Ox3, euthymic affect Results & Data ([facility]) Vital Signs (Past 12 Hours) Vital Signs Temp Pulse Pulse Resp BP Pulse Ox 06/06/19 15:23 36.5 C 75 16 118/78 90 06/06/19 12:47 95 06/06/19 12:46 88 L 06/06/19 12:00 36.4 C L 80 17 127/76 94 06/06/19 09:40 95 06/06/19 07:55 36.5 C 75 18 108/72 92 PG Care Time/CCT Total # of Minutes Spent Total Time Spent with Patient: Total time spent is greater than 50% in coordination of care (as documented) at patient's floor/unit and/or counseling patient: Coding Level of Care Code 33395 Inpt Consult Level 4 Diagnoses Hypoxia R09.02 Status post right shoulder hemiarthroplasty Z96.611 Left shoulder pain M25.512 Hypercholesterolemia E78.00 Depression with anxiety F41.8 Acid reflux disease K21.9 DVT prophylaxis Z29.9
--- NOTE | 2019-06-06 17:46 | XRay Report ---
XR chest 2V PA/lateral CLINICAL HISTORY: 63 years-old Female presenting with hypoxia. TECHNIQUE: PA and lateral views of the chest were obtained. COMPARISON: 05/29/2019. FINDINGS: Atherosclerosis of the aortic arch. Cardiac silhouette mildly enlarged. Bandlike opacity at the right lung base. Elevation of the right hemidiaphragm. Left lung and pleural space grossly clear. Right sh oulder arthroplasty. Evaluation of the lateral radiograph is limited by positioning of the right arm. Upper abdomen normal. IMPRESSION: 1. Right basilar opacities likely atelectasis or scarring, new from prior. 2. Mild cardiomegaly. No volume overload or significant congestive change. ACT 112: Negative or not required by law. Electronically signed by: Donovan Yeager M.D. 06/06/2019 5:45 PM
[2019-06-06] MEDS: SENNA 8.6 MG TAB PO SCH (20:05)
[2019-06-06] MEDS ORDERED: CeleBREX 200 MG CAP PO SCH (21:00)
[2019-06-07] MEDS: HYDROmorphone INJ 1 MG/ML SYRINGE IV PRN (00:39)
[2019-06-07] MEDS: HYDROCODONE/ACETAMOPHEN 5/325MG TAB PO PRN (05:31)
[2019-06-07] MEDS ORDERED: HYDROmorphone HCL 2 MG TAB PO PRN (08:23)
[2019-06-07] MEDS ORDERED: HYDROmorphone INJ 1 MG/ML SYRINGE IV PRN (08:26)
--- NOTE | 2019-06-07 08:39 | Orthopedic Progress Note ---
Date of Service June 07, 2019 Assessment & Plan (1) Status post right shoulder hemiarthroplasty: POD #2 s/p right shoulder resurfacing PT/OT Pain control issues. Continue hydrocodone. We will add IV Toradol 15 mg every 6 hours. Decrease her IV hydromorphone to .5 mg IV every 4 hours as needed. Add Dilaudid 2 mg, 1 or 2 tabs every 4 hours as needed pain. DVT prophylaxis, aspirin twice daily, SCDs. DC planning-patient is planning for discharge to home with home health services when pain is controlled. . Admission and Anticipated Discharge Date Admission Date: June 05, 2019 Subjective Postop day 2 status post right shoulder hemiarthroplasty. Patient is awake and alert sitting up in bed. She is no longer on oxygen at this time and the latest vital signs show pulse ox at 96 on room air. Vital signs are stable. She is still having some mild to moderate pain and requiring IV Dilaudid. She was hoping to go home today however with her pain control issues, we may decide to see how she is doing this afternoon with some changes in her pain medications before letting her go home. No other complaints at this time. Physical Exam Physical Exam: Incision is clean, dry, intact. Neurovascular is intact. She has good sensation in her fingers and has good range of motion at the wrist hand and fingers. Capillary refill is less than 2 seconds. Results & Data ([facility]) Vital Signs (Past 12 Hours) Vital Signs Temp Pulse Resp BP Pulse Ox 06/07/19 07:35 36.6 C 70 16 120/74 96 06/07/19 03:24 90 06/06/19 23:15 36.6 C 72 16 116/69 93
[2019-06-07] MEDS: ROSUVASTATIN CALCIUM 10 MG TAB PO SCH (08:41)
[2019-06-07] MEDS: MULTIVITAMIN TAB PO SCH (08:41)
[2019-06-07] MEDS: DOCUSATE SODIUM 100 MG CAP PO SCH ×2 (08:41→18:53)
[2019-06-07] MEDS: CITALOPRAM 20 MG TAB PO SCH (08:42)
[2019-06-07] MEDS: ASPIRIN 81 MG ECTAB PO SCH ×2 (08:42→20:25)
[2019-06-07] MEDS: KETOROLAC TROMETHAMINE 15 MG/ML VIAL IV SCH ×3 (08:42→20:25)
--- NOTE | 2019-06-07 09:28 | Hospitalist Progress Note ---
Date of Service June 07, 2019 Assessment & Plan (1) Hypoxia: - RESOLVED - Likely some respiratory depression from pain medication - no C/O SOB/dizziness/confusion -- She does report being told she snores at home so maybe some sleep apnea component which could be exacerbated with pain medication -- She may have underlying COPD - no findings to suggest a bronchitis exacerbation on exam - could have PFTs as outpatient to assess - Continue to encourage incentive spirometer and ambulation; nebs PRN - CXR - R basilar opacity likely atelectasis - no other acute findings - no leukocytosis of fever - not favoring pneumonia at this time - Consider CTA if further hypoxia, SOB, CP - unlikely PE Awaiting adequate oral pain control. DC possibly this afternoon vs tomorrow. No medical opposition to discharge unless clinical status changes (2) Status post right shoulder hemiarthroplasty: - S/P R shoulder surgery on 06/[address] Brewster - Surgical management per primary; pain control and bowel regimen as needed - DVT prophylaxis - ASA 81 mg BID (3) Left shoulder pain: - S/P L shoulder cortisone injection on 06/[address] Brewster (4) Hypercholesterolemia: - STABLE - Continue Rosuvastatin 10 mg daily (5) Depression with anxiety: - STABLE - Continue Citalopram 20 mg daily and Ativan PRN (6) Acid reflux disease: - STABLE - Continue PPI Admission and Anticipated Discharge Date Admission Date: June 05, 2019 Anticipated date of discharge: 06/07/19 Supervising Physician Co-Signing Physician Notes PA Supervision Note: I did not personally see or examine the patient today, but I verified all camacho points of DEVANTE Mireles's assessment and plan with the following exceptions/add itions: Overnight POx study indicated to look for HANK Subjective Overall doing well today. States she did have some increased pain this AM but now is improving with medication adjustments. She is no longer requiring supplemental O2. Denies every needing this in the past. She does report occ. having phlegm she can cough and loosen but never coughs out. She states she doesn't get SOB or other symptoms when her O2 sats were lower. She is compliant with the incentive spirometer. She is tolerating a diet. No new complaints. Review of Systems Constitutional: no fever and no chills Ear, Nose, Mouth, Throat: no nasal congestion and no sore throat Respiratory: + cough (intermittent); no dyspnea Cardiovascular: no chest pain Gastrointestinal: no abdominal pain, no nausea, no vomiting, no constipation and no diarrhea/loose stools Genitourinary: no dysuria Integumentary: no rash Neurologic: no tingling and no numbness Physical Exam Constitutional: WD/WN, vitals as above Eyes: + anicteric sclerae ENMT: Ears: no hearing impairment Neck: trachea midline Respiratory: normal respiratory effort, lungs clear to auscultation Cardiovascular: RRR, no murmur, no edema Gastrointestinal (Abdomen): Inspection/Auscultation: normal bowel sounds Percussion/Palpation: abdomen soft; abdomen nontender Musculoskeletal: Head/Neck/Chest: normocephalic and head atraumatic R arm in sling with movement to fingers Skin: no rashes, warm and dry Neurologic: moves all extremities (did not move RUE but movement to fingers noted) Psychiatric: A+Ox3, euthymic affect Results & Data ([facility]) Vital Signs (Past 12 Hours) Vital Signs Temp Pulse Resp BP Pulse Ox 06/07/19 07:35 36.6 C 70 16 120/74 96 06/07/19 03:24 90 06/06/19 23:15 36.6 C 72 16 116/69 93 PG Care Time/CCT Total # of Minutes Spent Total Time Spent with Patient: Total time spent is greater than 50% in coordination of care (as documented) at patient's floor/unit and/or counseling patient: Coding Level of Care Code 54362 Inpt Consult Level 2 Diagnoses Hypoxia R09.02 Status post right shoulder hemiarthroplasty Z96.611 Left shoulder pain M25.512 Hypercholesterolemia E78.00 Depression with anxiety F41.8 Acid reflux disease K21.9
[2019-06-07] MEDS: HYDROmorphone HCL 2 MG TAB PO PRN ×4 (13:37→23:37)
[2019-06-07 15:21] VITALS: TEMP 98.4
[2019-06-07] MEDS: SENNA 8.6 MG TAB PO SCH (18:53)
[2019-06-07 23:21] VITALS: O2SAT 91
[2019-06-08] MEDS: KETOROLAC TROMETHAMINE 15 MG/ML VIAL IV SCH ×2 (02:51→08:32)
--- NOTE | 2019-06-08 07:16 | Orthopedic Progress Note ---
Date of Service June 08, 2019 Assessment & Plan (1) Status post right shoulder hemiarthroplasty: POD #3 s/p right shoulder resurfacing PT/OT DVT prophylaxis, aspirin twice daily, SCDs. recheck after PT today for poss discharge pending pain control O2 levels remain stable. . Admission and Anticipated Discharge Date Admission Date: June 05, 2019 Anticipated date of discharge: 06/07/19 Subjective Postop day 3 status post right shoulder hemiarthroplasty. denies CP/SOB. denies fever chills. pain better controlled this am. Physical Exam Physical Exam: Vital Signs Temp 36.9 C 06/07/19 23:16 Pulse 84 06/07/19 23:16 Resp 17 06/07/19 23:16 BP 148/88 H 06/07/19 23:16 Pulse Ox 91 06/07/19 23:16 Intake & Output 06/07/19 06/08/19 06/08/19 18:59 06:59 18:59 Intake Total 540 / 740 200 / 740 Balance 540 / 740 200 / 740 Intake: Oral 540 / 740 200 / 740 Other: # Unmeasured Voi ds 3 1 Constitutional: WD/WN, vitals as above no acute distress Musculoskeletal: right shoulder: NVDI, Radial +2, Prineo dressing clean dry and intact. expected post-operative bruising noted. rad/med/ulnar nerves intact Results & Data ([facility]) Vital Signs (Past 12 Hours) Vital Signs Temp Pulse Pulse Resp BP Pulse Ox Pulse Ox 06/07/19 23:16 36.9 C 84 17 148/88 H 91 06/07/19 23:10 82 90 06/07/19 21:55 77 92 Laboratory Results Laboratory Results WBC 10.43 K/uL (4.8-10.8) 06/06/19 05:23 RBC 4.34 M/uL (4.2-5.4) 06/06/19 05:23 Hgb 12.7 g/dL (12.0-16.0) 06/06/19 05:23 Hct 38.9 % (37-47) 06/06/19 05:23 MCV 89.6 fL (80-100) 06/06/19 05:23 MCH 29.3 pg (25-34) 06/06/19 05:23 MCHC 32.6 g/dL (32-36) 06/06/19 05:23 RDW Std Deviation 42.5 fL (36.4-46.3) 06/06/19 05:23 RDW Coeff of Jenna 12.9 % (11.5-14.5) 06/06/19 05:23 Plt Count 267 K/uL (130-400) 06/06/19 05:23 MPV 9.5 fL (7.4-10.4) 06/06/19 05:23 Immature Gran % (Auto) 0.2 % 06/06/19 05:23 Neut % (Auto) 80.3 % 06/06/19 05:23 Lymph % (Auto) 10.7 % 06/06/19 05:23 [place] % (Auto) 8.8 % 06/06/19 05:23 Eos % (Auto) 0.0 % 06/06/19 05:23 Baso % (Auto) 0.0 % 06/06/19 05:23 Immature Gran # (Auto) 0.02 K/uL (0.00-0.02) 06/06/19 05:23 Neut # (Auto) 8.37 K/uL (1.4-6.5) H 06/06/19 05:23 Lymph # (Auto) 1.12 K/uL (1.2-3.4) L 06/06/19 05:23 [place] # (Auto) 0.92 K/uL (0.11-0.59) H 06/06/19 05:23 Eos # (Auto) 0.00 K/uL (0-0.5) 06/06/19 05:23 Baso # (Auto) 0.00 K/uL (0-0.2) 06/06/19 05:23 PT 9.8 Seconds (9.0-12.0) 05/29/19 14:19 INR 1.0 (0.9-1.1) 05/29/19 14:19 APTT 26.2 Seconds (21.0-31.0) 05/29/19 14:19 PTT Ratio 1.0 05/29/19 14:19 Sodium 136 mmol/L (136-145) 06/06/19 05:23 Potassium 4.6 mmol/L (3.5-5.1) 06/06/19 05:23 Chloride 105 mmol/L (98-107) 06/06/19 05:23 Carbon Dioxide 27 mmol/L (21-32) 06/06/19 05:23 Anion Gap 4.0 (3-11) 06/06/19 05:23 BUN 15 mg/dl (7-18) 06/06/19 05:23 Creatinine 1.15 mg/dl (0.6-1.2) 06/06/19 05:23 Est Cr Clr Drug Dosing 47.7 ml/min 06/06/19 05:23 Est GFR ( Amer) 58.2 06/06/19 05:23 Est GFR (Non-Af Amer) 50.2 06/06/19 05:23 BUN/Creatinine Ratio 12.6 (10-20) 06/06/19 05:23 Glucose 129 mg/dl (70-99) H 06/06/19 05:23 Estimat Average Glucose 126 mg/dl 05/29/19 14:19 Hemoglobin A1c 6.0 % (4.5-5.6) H 05/29/19 14:19 Calcium 8.2 mg/dl (8.5-10.1) L 06/06/19 05:23 Urine Color Yellow 05/29/19 14:19 Urine Appearance Clear (Clear) 05/29/19 14:19 Urine pH 5.5 (4.5-7.5) 05/29/19 14:19 Ur Specific [place] 1.023 (1.000-1.030) 05/29/19 14:19 Urine Protein Negative (Negative) 05/29/19 14:19 Urine Glucose (UA) Negative (Negative) 05/29/19 14:19 Urine Ketones Negative (Negative) 05/29/19 14:19 Urine Blood Negative (Negative) 05/29/19 14:19 Urine Nitrite Negative (Negative) 05/29/19 14:19 Urine Bilirubin Negative (Negative) 05/29/19 14:19 Urine Urobilinogen Negative (Negative) 05/29/19 14:19 Ur Leukocyte Esterase Negative (Negative) 05/29/19 14:19 Blood Type O Positive 05/29/19 14:19 Antibody Screen NEGATIVE 05/29/19 14:19
[2019-06-08 07:17] VITALS: BP 125/81
[2019-06-08] MEDS: HYDROmorphone HCL 2 MG TAB PO PRN ×2 (07:29→12:39)
[2019-06-08] MEDS: ROSUVASTATIN CALCIUM 10 MG TAB PO SCH (08:32)
[2019-06-08] MEDS: ASPIRIN 81 MG ECTAB PO SCH (08:32)
[2019-06-08] MEDS: DOCUSATE SODIUM 100 MG CAP PO SCH (08:32)
[2019-06-08] MEDS: MULTIVITAMIN TAB PO SCH (08:32)
[2019-06-08] MEDS: CITALOPRAM 20 MG TAB PO SCH (08:32)
--- NOTE | 2019-06-08 09:39 | Communication Note ---
Date of Service: June 08, 2019 Discussed care with Aston Grijalva PA-C. Dr. Ashraf asking that splint on left hand be removed and that 4th/5th left fingers be jayme taped for treating 5th proximal phalanx fx. Spint removed. 4/5th left fingers jayme taped together. Pt tolerated well.
--- NOTE | 2019-06-08 12:37 | Hospitalist Progress Note ---
Date of Service June 08, 2019 Assessment & Plan (1) Hypoxia: - RESOLVED during daytime but persists and is severe nocturnally with sleep - Likely some respiratory depression from pain medication - no C/O SOB/dizziness/confusion -- She does report being told she snores at home so maybe some sleep apnea component which could be exacerbated with pain medication -- She may have underlying COPD - no findings to suggest a bronchitis exacerbation on exam - could have PFTs as outpatient to assess - Overnight pulse ox study shows significant desaturations - given Rx for 2 L NC for HS use and will be arranged with case management. Discussed needing to arrange a formalized sleep study. She does not currently carry a diagnosis of asthma/COPD but given even the remote smoking history she could; she may have some hypoventilation syndrome as well? - Would benefit from sleep study to determine if maybe BiPAP/CPAP would be more suitable for her condition - Continue to encourage incentive spirometer and ambulation - CXR - R basilar opacity likely atelectasis - no other acute findings - no leukocytosis of fever - not favoring pneumonia at this time -no signs/symptoms of PE, saturations are appropriate through the day - unlikely PE (2) Status post right shoulder hemiarthroplasty: - S/P R shoulder surgery on 06/[address] Brewster - Surgical management per primary; pain control and bowel regimen as needed - DVT prophylaxis - ASA 81 mg BID Plan to continue home medications as prescribed. Arranged for HS use of supplemental O2 for nocturnal hypoxia. No opposition from medicine for D/C home per primary service (3) HANK (obstructive sleep apnea): With significant desaturations at nighttime as above Home O2 delivered to the home on day of dc Needs formal sleep study as would benefit from CPAP (4) Left shoulder pain: - S/P L shoulder cortisone injection on 06/[address] Brewster (5) Hypercholesterolemia: - STABLE - Continue Rosuvastatin 10 mg daily (6) Depression with anxiety: - STABLE - Continue Citalopram 20 mg daily and Ativan PRN (7) Acid reflux disease: - STABLE - Continue PPI (8) DVT prophylaxis: ASA 81 bid, SCDs Dispo-medically stable for discharge to home today Admission and Anticipated Discharge Date Admission Date: June 05, 2019 Anticipated date of discharge: 06/07/19 Supervising Physician Co-Signing Physician Notes PA Supervision Note: I did not personally see or examine the patient today, but I verified all camacho points of DEVANTE Mireles's assessment and plan with the following exceptions/additions: none Subjective Reports feeling well today. Pain is better controlled but still ongoing issue. Tolerating a diet. Verbalizes no new complaints. She did have an overnight pulse ox study which resulted in desaturations as low as 61%. She states at home she doesn't sleep much. She is up most of the night watching TV or playing on her tablet. She states she sleeps sometimes only about 3 hours around 5 AM. She states she feels rested with this. Explained she really should have a formal sleep study. Review of Systems Constitutional: no fever and no chills Ear, Nose, Mouth, Throat: no sore throat and no dysphagia Respiratory: + cough (intermittent) and + snoring; no dyspnea and no wheezing Cardiovascular: no chest pain, no palpitations, no lightheadedness and no lizbet a Gastrointestinal: no abdominal pain, no nausea, no vomiting, no constipation and no diarrhea/loose stools Genitourinary: no dysuria Musculoskeletal: + joint pain (R shoulder) Integumentary: no rash Neurologic: no tingling and no numbness Physical Exam Constitutional: WD/WN, vitals as above Eyes: + anicteric sclerae ENMT: Ears: no hearing impairment Neck: trachea midline Respiratory: normal respiratory effort, lungs clear to auscultation Cardiovascular: RRR, no murmur, no edema Gastrointestinal (Abdomen): Inspection/Auscultation: normal bowel sounds Percussion/Palpation: abdomen soft; abdomen nontender Musculoskeletal: Head/Neck/Chest: normocephalic and head atraumatic Skin: no rashes, warm and dry Neurologic: moves all extremities (did not move RUE but movement to fingers noted) Psychiatric: A+Ox3, euthymic affect Results & Data ([facility]) Vital Signs (Past 12 Hours) Vital Signs Temp Pulse Resp BP Pulse Ox 06/08/19 07:16 36.9 C 83 18 125/81 91 PG Care Time/CCT Total # of Minutes Spent Total Time Spent with Patient: Total time spent is greater than 50% in coordination of care (as documented) at patient's floor/unit and/or counseling patient: Coding Level of Care Code 74233 Inpt Consult Level 2 Diagnoses Hypoxia R09.02 Status post right shoulder hemiarthroplasty Z96.611 HANK (obstructive sleep apnea) G47.33 Left shoulder pain M25.512 Hypercholesterolemia E78.00 Depression with anxiety F41.8 Acid reflux disease K21.9 DVT prophylaxis Z29.9
[2019-06-08 13:28] VITALS: PULSE 80
--- NOTE | 2019-06-08 13:33 | Discharge Summary ---
Date of Service date of discharge: June 08, 2019 date of admission: 06-05-19 Admission HPI Per Admitting Provider Ms Acuna is a 63 year old female who complains of bilateral shoulder pain, right greater than left, and presents for pre-op evaluation prior to a right shoulder resurfacing hemiarthroplasty and left shoulder cortisone injection at [facility]. She presents with pain and decreased ROM on the right side. She states that the symptoms have been chronic non-traumatic and her pain is constant. Currently the patient states that the symptoms are moderate-severe. The pain is described as aching and sharp. She rates her current pain as 8/10. The symptoms are aggravated by daily activities, driving, lifting away from the body, moving the arm suddenly, reaching overhead and repetitive activities. Prior NSAIDs include ibuprofen. 08-10-18: Right shoulder arthroscopic rotator cuff debridement of articular side cuff tear. she has failed conservative measures including cortisone injection as well as previous arthroscopy. she has also had previous Sample Visco injection. 2. left shoulder pain She also complains of pain on the left side and states that the symptoms have been chronic non-traumatic. Currently she states that the symptoms are moderate. The pain is described as aching and sharp. She rates her current pain as 6/10. The symptoms are aggravated by daily activities, lifting, lifting away from the body, moving the arm suddenly and reaching overhead. 07-05-18: Left shoulder arthroscopic subacromial decompression, Debridement of articular side rotator cuff tear, Distal clavicle excision Principal Diagnosis right shoulder osteoarthritis Discharge Exam Vital Signs Temp 36.9 C 06/08/19 13:27 Pulse 80 06/08/19 13:27 Resp 18 06/08/19 13:27 BP 125/81 06/08/19 13:27 Pulse Ox 91 06/08/19 13:27 Intake & Output 06/07/19 06/08/19 06/08/19 18:59 06:59 18:59 Intake Total 540 / 740 200 / 740 Balance 540 / 740 200 / 740 Weight 81.2 kg Intake: Oral 540 / 740 200 / 740 Other: # Unmeasured Voids 3 1 Constitutional WD/WN, vitals as above no acute distress Musculoskeletal right shoulder: NVDI, Radial +2, Prineo dressing clean dry and intact. expected post-operative bruising noted. rad/med/ulnar nerves intact Discharge Data Allergies Allergy/AdvReac Type Severity Reaction Status Date / Time simvastatin [From Zocor] Allergy Unknown Rash Verified 06/05/19 10:24 atorvastatin [From Lipitor] AdvReac Unknown muscle Verified 06/05/19 10:24 aches oxycodone AdvReac Unknown Headache Verified 06/05/19 10:24 Consultations 06/05/19 16:37 Consult Case Management - Discharge Planning Routine 06/06/19 15:19 Consult Hospitalist Routine Procedures Performed Operation Date: 06/05/19 12:45 Actual Procedures p Right Shoulder Tornier Resurfacing (Right) - Dom Brewster DO s Left Shoulder Cortisone Injection - Dom Brewster DO Ordered Studies 06/05/19 05:00 US - OR guided needle placemen Routine Hospital Course (1) Status post right shoulder hemiarthroplasty: POD #3 s/p right shoulder resurfacing PT/OT DVT prophylaxis, aspirin twice daily, SCDs. recheck after PT today for poss discharge pending pain control O2 levels remain stable. . (1) Hypoxia: - RESOLVED - Likely some respiratory depression from pain medication - no C/O SOB/dizziness/confusion -- She does report being told she snores at home so maybe some sleep apnea component which could be exacerbated with pain medication -- She may have underlying COPD - no findings to suggest a bronchitis exacerbation on exam - could have PFTs as outpatient to assess - Overnight pulse ox study shows significant desaturations - given Rx for 2 L NC for HS use and will be arranged with case management. Discussed needing to arrange a formalized sleep study. She does not currently carry a diagnosis of asthma/COPD but given even the remote smoking history she could; she may have some hypoventilation syndrome as well? - Would benefit from sleep study to determine if maybe BiPAP/CPAP would be more suitable for her condition - Continue to encourage incentive spirometer and ambulation - CXR - R basilar opacity likely atelectasis - no other acute findings - no leukocytosis of fever - not favoring pneumonia at this time - Consider CTA if further hypoxia, SOB, CP however this has not occurred and saturations are appropriate through the day - unlikely PE Total Time Total Time Spent Total Time Spent (In Minutes): 20 Total Time Includes: Examination of the Patient, Discharge Planning and Medication Reconciliation Discharge Plan Discharge Items Patient Disposition: Home - Home Health Services Reason For Visit: RIGHT SHOULDER OSTEOARTHRITIS, LEFT SHOULDER PAIN Discharge Diagnosis: right shoulder resurfacing left shoulder impingement Activity: Per Instructions section Lifting: Wait until after follow-up appointment Non-emergency contact: Surgeon Call non-emergency contact if: you have any medication questions, your temperature is above 101, your wound has increased redness, your wound has increased drainage and your wound pain has increased Follow-up/Referrals: Shawna Neely MD [Primary Care Provider] - 06/18/19 10:30 am (Please arrive for your appointment by 10:20a.m. If you need to reschedule your appointment, please call [phone].) Diet: Regular Addtl Attending Provider Instructions: ACTIVITY RECOMMENDATIONS: SELF CARE INSTRUCTIONS AFTER SHOULDER RESURFACING A. You may do daily exercises as taught in physical therapy while in hospital. No lifting with the operative arm. Please schedule your outpatient physical therapy appointment to begin within 2-3 days after leaving the hospital. Specific restrictions will be written on your physical therapy prescription that is provided to you. B. You are to wear your sling/immobilizer at all times EXCEPT when performing your daily exercises, participating in physical therapy and for hygiene purposes. C. You may perform dry, daily dressing changes. Please keep your incision covered. You may shower 48 hours after surgery. Do not apply soap or any ointme nt/lotions directly over incision. Do not soak incision in bath tub/swimming pool. D. You may use ice as needed to operative shoulder. SPECIAL CARE INSTRUCTIONS: VERY IMPORTANT TO READ AND REVIEW A. There are a few signs you need to watch for after you are home. Call [facility] at [phone] if you experience any of the followin. Increased severe shoulder pain. Some pain is expected especially when you exercise. 2. Increased swelling in you shoulder or arm; pain or swelling in either upper extremity. 3. Any fluid drainage from the incision. 4. Shortness of breath or chest pain. B. Please call [facility] at [phone] if you have any questions or concerns about your operation or recovery. C. Call your physician if: 1. Temperature is greater than 101 degrees (F). 2. Pain is not relieved by prescribed pain medications. 3. Increase drainage or redness from incision. 4. Unanswered questions or concerns. FOLLOW UP VISIT: Please call [facility] at [phone] to schedule a follow up appointment with Dr. Brewster or his PA in 12-14 days from your surgery date. Addtl Cigarette Tipper Provider Instructions: Low Oxygen Saturations: - You had some lower oxygen levels during this admission. This may be some from pain medication as opiates can cause a decrease in the drive to breathe to an extent. We see this more commonly with individuals that may have sleep apnea. Given that you have been told you snore this is a possibility. Through the day you levels have been good. However at night you drop multiple times. The ov ernight test we did is not a formal sleep study so it does not check if you stop breathing but given the oxygen levels that is a possibility. You should have a formal sleep study and likely will be called with a possible appointment. For now would recommend you use 2 L oxygen at night only when you are sleeping. Pending Studies at Discharge: No Stand-Alone Forms: My [facility], Opioid Pain Management, Smoking Cessation Medications and DC Order Prescriptions: New celecoxib [Celebrex] 200 mg Capsule 200 mg PO BID 30 Days Qty: 60 RF: 0 hydrocodone-acetaminophen [[place]] 5-325 mg Tablet 1 - 2 tab PO Q6H PRN (Reason: pain) Qty: 30 RF: 0 aspirin [Ecotrin Low Strength] 81 mg Tablet,Delayed Release (Dr/Ec) 81 mg PO BID 30 Days Qty: 60 RF: 0 docusate sodium 100 mg Capsule 100 mg PO BID 10 Days Qty: 20 RF: 0 cefadroxil 500 mg capsule 500 mg PO BID 10 Days Qty: 20 RF: 0 Continued rosuvastatin 10 mg tablet 10 mg PO DAILY Qty: 90 RF: 1 citalopram 20 mg tablet 20 mg PO QAM RF: 0 omeprazole 40 mg capsule,delayed release(DR/EC) 40 mg PO QAM RF: 0 lorazepam 0.5 mg tablet 0.5 mg PO UD PRN (Reason: anxiety) RF: 0 Discontinued hydrocodone-acetaminophen 5-325 mg Tablet 1 tab PO UD PRN (Reason: Pain) RF: 0 ibuprofen 200 mg Tablet 400 mg PO UD PRN (Reason: Pain) RF: 0 Discharge Orders: Discharge Order (Routine); Ordered 06/08/19 Ordered By: Yimi Smith/Other Patient Handouts: Prediabetes, A1C Admission Data Admit Date/Time: 06/05/19 14:59 Attending Provider: Dom Brewster Admit Provider: Dom Brewster Primary Care Provider: Shawna Neely Other Providers: Dulce Maria Villarreal Other Interventions: Discharge Summary Assessment (RN) Last Done: 06/08/19 13:27
== END 2019-06-08 14:08 | disposition home health service (06) | DRG 507 ==
LOC: ASU 10:07 → 3E 14:59
DX: G47.33 Obstructive sleep apnea (adult) (pediatric); F41.8 Other specified anxiety disorders; J98.11 Atelectasis; M19.011 Primary osteoarthritis, right shoulder; J44.9 Chronic obstructive pulmonary disease, unspecified; Z79.899 Other long term (current) drug therapy; G47.36 Sleep related hypoventilation in conditions classified elsewhere; Z98.890 Other specified postprocedural states; K21.9 Gastro-esophageal reflux disease without esophagitis; R09.02 Hypoxemia; E66.9 Obesity, unspecified; Z79.1 Long term (current) use of non-steroidal anti-inflammatories (NSAID); Z68.33 Body mass index [BMI] 33.0-33.9, adult; Z88.8 Allergy status to other drugs, medicaments and biological substances; T40.2X5A Adverse effect of other opioids, initial encounter; E78.00 Pure hypercholesterolemia, unspecified; Z87.891 Personal history of nicotine dependence; M25.812 Other specified joint disorders, left shoulder

== ENCOUNTER 2022-09-21 13:42 | Inpatient (IN) ==
[2022-09-21] MEDS ORDERED: OPTIRAY 320 500ml IV ONE (13:52)
[2022-09-21] MEDS ORDERED: LABETALOL HCL IV 5 MG/ML 20ML IV ONE (13:57)
--- NOTE | 2022-09-21 14:01 | CT Scan Report ---
CT SCAN OF THE BRAIN WITHOUT IV CONTRAST CLINICAL HISTORY: Neurological deficit. Stroke like symptoms. COMPARISON STUDY: No priors. TECHNIQUE: Unenhanced axial CT scan of the brain is performed from the vertex to the skull base. A do se lowering technique was utilized adhering to the principles of ALARA. FINDINGS: Brain parenchyma: There is age-related involutional change noting mild subcortical and periventricula r microangiopathic disease. There is no hemorrhage, mass effect, or evidence of acute territorial isc hemia by CT criteria. Melendez-white matter differentiation is preserved. No extra-axial fluid collection is seen. Ventricles, sulci, cisterns: Prominent secondary to involutional change. Intracranial vasculature: There is atherosclerotic calcification of the cavernous carotid arteries. Calvarium: Unremarkable. Sinuses and mastoids: There is mild mucosal thickening in the ethmoid sinuses. The remaining visualiz ed paranasal sinuses are clear. The mastoid air cells are well pneumatized. Orbits: The bony orbits are grossly intact. IMPRESSION: There is no hemorrhage, mass effect, or evidence of acute territorial ischemia by CT benedict melendez. ACT 112: Negative or not required by law. Electronically signed by: David Vanessa M.D. 09/21/2022 2:00 PM
[2022-09-21] MEDS: LABETALOL HCL IV 5 MG/ML 20ML IV STA ×2 (14:02→15:29)
--- NOTE | 2022-09-21 14:12 | CT Scan Report ---
NECK CTA HISTORY: neuro deficit, acute stroke suspected TECHNIQUE: Multiaxial CT images of the neck were performed following the intravenous administration o f contrast to evaluate the major cervical vessels. Maximum intensity projection images were also obta ined. All measurements were calculated based on NASCET criteria. A dose lowering technique was utili zed adhering to the principles of ALARA. COMPARISON STUDY: None. FINDINGS: The aortic arch and proximal great vessels are widely patent. There is no significant sten osis, occlusion, or dissection identified within the bilateral common carotid, internal carotid, or v ertebral arteries. There are few small thyroid nodules with the largest in the left measuring 11 mm. These do not meet CT criteria for follow-up. There is a focal bifurcation/fenestration within the dis mariely right vertebral artery at the C3 level. This is considered to be a normal variant. IMPRESSION: No significant stenosis, occlusion, or dissection identified within the carotid or vertebral arteries . ACT 112: Negative or not required by law. Electronically signed by: Guzman Ghosh M.D. 09/21/2022 2:11 PM
--- NOTE | 2022-09-21 14:13 | CT Scan Report ---
CTA ANGIOGRAPHY OF THE HEAD CLINICAL HISTORY: neuro deficit, acute stroke suspected COMPARISON STUDY: No previous studies for comparison. TECHNIQUE: Helical axial images of the head were obtained following uneventful intravenous administr ation of 120 cc of Optiray. Sagittal and coronal reconstructions were viewed as well as maximal inten sity projections on an independent 3-D workstation. Automated exposure control was utilized for the study. A dose lowering technique was utilized adhering to the principles of ALARA. CT DOSE: 1125.08 mGy.cm FINDINGS: No acute intracranial hemorrhage is identified on the head CT which will be reported separa tely. Ventricular system is normal. Basal cisterns are patent. There are no extra-axial collections. The bilateral M1, M2, A1 and A2 segments are patent. 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 Posterior circulation is intact with no central vessel occlusion. There is no intracranial aneurysm. Major dural sinuses are patent. There is minimal plaque within the cavernous carotids. IMPRESSION: Unremarkable CTA of the head. No central vessel occlusion. No intracranial aneurysm. ACT 112: Negative or not required by law. Electronically signed by: Misael Izquierdo M.D. 09/21/2022 2:12 PM
[2022-09-21 14:15] LABS: Basophils # (auto) 0.06 K/uL (0-0.2); Basophils % (auto) 1.2 %; Eosinophils # (auto) 0.09 K/uL (0-0.50); Eosinophils % (auto) 1.8 %; Hematocrit (blood only) 41.8 % (37.0-47.0); Hemoglobin 13.7 g/dl (12.0-16.0); Immature Granulocytes # (auto) 0.01 K/uL (0.01-0.20); Immature Granulocytes % (auto) 0.2 %; Lymphocytes # (auto) 2.06 K/uL (1.2-3.4); Lymphocytes % (auto) 41.7 %; Mean Corpuscular Hemoglobin 28.7 pg (25.0-34.0); Mean Corpuscular Hgb Conc 32.8 g/dL (32.0-36.0); Mean Corpuscular Volume 87.4 fL (80.0-100.0); Monocytes # (auto) 0.76 K/uL (0.11-0.59); Monocytes % (auto) 15.4 %; Neutrophils # (auto) 1.96 K/uL (1.40-6.50); Neutrophils % (auto) 39.7 %; Platelet Count 287 K/uL (130-400); RDW Coefficient of Variation 12.3 % (11.5-14.5); RDW Standard Deviation 39.4 fL (36.4-46.3); Red Blood Count 4.78 M/uL (4.20-5.40); White Blood Count 4.94 K/ul (4.8-10.8)
--- NOTE | 2022-09-21 14:21 | Emergency Department Note ---
Impression & Plan Acute left-sided weakness, Stroke-like symptoms ED Provider Note NAME: LETICIA SANDERS AGE: 66 SEX: F : 1955 ARRIVES VIA: Ambulance INFORMANT: [Patient][EMS] ED PROVIDER(S): [David Gillette MD] Patient first seen by me at 1343 CHIEF COMPLAINT: Stroke alert HISTORY OF PRESENT ILLNESS: The patient is a 66-year-old female who did not feel well most of the day since getting up this morning. She felt markedly worse at around 1030, 3 hours and 13minutes ago when she felt her left leg and left arm were weak. She felt she was sort of falling or stumbling to the left. No facial droop or facial numbness. No speech issue. No cough or congestion or chest pain. No headache. She does present by EMS. In route, a stroke alert was called. PMHx/PSHx: See Below SOCIAL HISTORY: See Below. PHYSICAL EXAM: GENERAL: Patient is in no acute distress. HEENT: No acute trauma, normocephalic atraumatic, mucous membranes moist, no nasal congestion. NECK: No stridor, no adenopathy, no meningismus, trachea is midline. LUNGS: Clear to auscultation bilaterally, no wheeze, no rhonchi, breath sounds equal. HEART: Without murmurs gallops or rubs, regular rate and rhythm. ABDOMEN: Soft, nontender, bowel sounds positive, no peritonitis. EXTREMITIES: No cyanosis or edema, full range of motion of all the joints without pain or difficulty, no signs for acute trauma. NEUROLOGIC: Oriented x 3. She has some shakiness when lifting the left leg off the bed but no actual drift. Right leg was strong. No cerebellar dysfunction on the left or right. No left upper extremity drift. No speech slur or facial droop. Left hand grasp may be slightly weaker compared to the right SKIN: No rash, no jaundice, no diaphoresis. DIFFERENTIAL DIAGNOSIS: Stroke, TIA, intracranial bleeding, electrolyte imbalance, anemia, infection, intracranial mass, among others. EMERGENCY DEPARTMENT COURSE/PROCEDURES: Prior/Outside records reviewed: EMS notes. ECG per my interpretation: Indication was stroke. The ECG shows a normal sinus rhythm with a rate of 70. There is no ST elevation, no PVCs. The QTc was 447 Continuous Cardiac Monitoring per my interpretation: An order was placed for continuous cardiac monitoring. The monitor shows a rate of 65 with normal sinus rhythm. Critical Care Note: I have personally spent 52 minutes of critical care time in the direct management of this patient. This includes bedside care, interpretation of diagnostic studies, and testing, discussion with consultants, patient, and family members, and other required patient management activities. This 52 minutes is in excess of all separately billable procedures. MEDICAL DECISION MAKING: There is no leukocytosis or concerning anemia. There is a normal platelet count. No coagulopathy. No renal failure or significant electrolyte abnormalit y. No concerning liver enzyme elevation. COVID test returned negative. ECG showed a normal sinus rhythm, no dysrhythmia or ischemia. Brain CT showed no acute bleed or mass effect. CT angio of the head and neck did not show any significant stenosis or clot. On exam, the patient had some very subtle findings to the left upper and left lower extremity. She appears to be improved compared to when things first began. The patient states that she thinks she actually may have not been doing well even before 1030. This would put her out of the window for TNK. In addition, the patient is markedly improved with minimal deficits and thus, for these 2 reasons, she is not a candidate for TNK. A stroke alert was called on the patient prior to arrival. Dr. Mendoza of [facility] did see the patient via telemedicine. TNK was not recommended for the above reasons. The patient was given a full baby aspirin at the recommendation of [facility]. This was given orally. The patient will be hospitalized for a stroke work-up. The patient understands the need for the hospital stay. Case management has been involved. The on-call hospitalist was consulted. DISPOSITION: The patient's presentation and findings warrant a hospital stay. 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 (not sure what kind[place] [facility] [place] Hyperlipidemia Obesity HANK (obstructive sleep apnea) Osteoarthritis Surgical History History of appendectomy History of colonoscopy History of esophagogastroduodenoscopy (EGD) History of left knee surgery History of repair of anterior cruciate ligament of right knee History of repair of left rotator cuff History of repair of right rotator cuff History of thumb surgery History of tooth extraction History of total hysterectomy with bilateral salpingo-oophorectomy (BSO) S/P shoulder surgery Status post right shoulder hemiarthroplasty Family History Mother Myocardial infarction Elevated blood sugar Other No family history of adverse response to anesthesia Denies family history of Ovarian cancer Prostate cancer Breast cancer Colorectal cancer Social History Smoking Status: Never smoker Second Hand Exposure: Yes (father smoked); Do You Dip or Chew Tobacco: No; Hx Alcohol Use: Yes Alcohol type: wine Alcohol Intake Frequency: Monthly or Less Hx Substance Use: No Preferred Language: Azeri Communication Ability: Effective Visual Impairment: No Limitations Hearing Ability: Normal Wagon Driver Required: No Beliefs That Will Affect Care: Christianity Christianity Beliefs: JUDAISM marital status: / Current Living Situation: Alone current occupational status: retired and disabled How many Children do You have: 1 Feels Safe at Home: Yes Childhood Exposure to Second-Hand Smoke: Yes Diet: regular caffeine: Yes during the past year weight has: remained stable Dental Care, Regularly: No Physical Activity Frequency: Does not Exercise Seatbelt Use: sometimes Sunscreen Use: Yes Assistive Devices: Denture - Upper, Denture - Lower and Glasses Allergies Allergies Allergy/AdvReac Type Severity Reaction Status Date / Time simvastatin [From Zocor] Allergy Unknown Rash Verified 08/28/21 09:17 atorvastatin [From Lipitor] AdvReac Unknown muscle Verified 08/28/21 09:17 aches oxycodone AdvReac Unknown Headache Verified 08/28/21 09:17 Home Meds Previous Rx's Medication Instructions Recorded lorazepam 0.5 mg tablet 0.5 mg PO DAILY PRN anxiety #30 06/15/19 tabs omeprazole 40 mg capsule,delayed 40 mg PO QAM #90 caps 11/27/21 release citalopram 20 mg tablet 20 mg PO QAM #90 tabs 07/14/22 rosuvastatin 10 mg tablet 10 mg PO QAM #90 tabs 08/27/22 Results & Data (ED) Vital Signs Vital Signs - 24 hr 09/21/22 14:06 09/21/22 13:59 09/21/22 13:56 Temperature 36.8 C Temperature Source Oral Pulse Rate 66 75 74 Pulse Rate from SpO2 Sensor 74 Respiratory Rate 18 20 Blood Pressure Blood Pressure Mean Pulse Oximetry 99 98 Sepsis Recent Fever Within 48 Hours No Sepsis New/Unexplained Change in Mental Status No Sepsis Action Taken by Nursing No Action Required 09/21/22 14:00 09/21/22 14:04 09/21/22 14:04 Temperature Temperature Source Pulse Rate 69 71 Pulse Rate from SpO2 Sensor 69 71 Respiratory Rate 16 13 Blood Pressure 164/80 H Blood Pressure Mean 108 Pulse Oximetry 95 96 Sepsis Recent Fever Within 48 Hours Sepsis New/Unexplained Change in Mental Status Sepsis Action Taken by Nursing 09/21/22 14:10 09/21/22 14:10 09/21/22 14:15 Temperature Temperature Source Pulse Rate 65 67 Pulse Rate from SpO2 Sensor 66 69 Respiratory Rate 20 14 Blood Pressure 179/123 H Blood Pressure Mean 141 Pulse Oximetry 95 95 Sepsis Recent Fever Within 48 Hours Sepsis New/Unexplained Change in Mental Status Sepsis Action Taken by Nursing 09/21/22 14:20 09/21/22 14:20 09/21/22 14:30 Temperature Temperature Source Pulse Rate 65 Pulse Rate from SpO2 Sensor 68 Respiratory Rate 16 Blood Pressure 195/105 H 154/97 H Blood Pressure Mean 135 116 Pulse Oximetry 96 Sepsis Recent Fever Within 48 Hours Sepsis New/Unexplained Change in Mental Status Sepsis Action Taken by Nursing 09/21/22 14:30 09/21/22 14:40 09/21/22 14:40 Temperature Temperature Source Pulse Rate 63 67 Pulse Rate from SpO2 Sensor 64 66 Respiratory Rate 13 17 Blood Pressure 152/93 H Blood Pressure Mean 112 Pulse Oximetry 95 96 Sepsis Recent Fever Within 48 Hours Sepsis New/Unexplained Change in Mental Status Sepsis Action Taken by Nursing 09/21/22 14:45 09/21/22 14:51 09/21/22 14:53 Temperature Temperature Source Pulse Rate 66 67 69 Pulse Rate from SpO2 Sensor 67 70 70 Respiratory Rate 18 16 24 Blood Pressure Blood Pressure Mean Pulse Oximetry 95 96 96 Sepsis Recent Fever Within 48 Hours Sepsis New/Unexplained Change in Mental Status Sepsis Action Taken by Long-Term Medications Current Medication List: was personally reviewed by me Laboratory Data Attestation: I reviewed the patient's lab results. 09/21/22 14:01 09/21/22 14:01 Lab Results 09/21/22 09/21/22 09/21/22 Range/Units 13:58 14:01 14:01 WBC 4.94 (4.8-10.8) K/ul RBC 4.78 (4.20-5.40) M/uL Hgb 13.7 (12.0-16.0) g/dl Hct 41.8 (37.0-47.0) % MCV 87.4 (80.0-100.0) fL MCH 28.7 (25.0-34.0) pg MCHC 32.8 (32.0-36.0) g/dL RDW Std Deviation 39.4 (36.4-46.3) fL RDW Coeff of Jenna 12.3 (11.5-14.5) % Plt Count 287 (130-400) K/uL MPV 9.0 L (9.4-12.4) fL Immature Gran % (Auto) 0.2 % Neut % (Auto) 39.7 % Lymph % (Auto) 41.7 % Carlisle % (Auto) 15.4 % Eos % (Auto) 1.8 % Baso % (Auto) 1.2 % Neut # (Auto) 1.96 (1.40-6.50) K/uL Lymph # (Auto) 2.06 (1.2-3.4) K/uL Carlisle # (Auto) 0.76 H (0.11-0.59) K/uL Eos # (Auto) 0.09 (0-0.50) K/uL Baso # (Auto) 0.06 (0-0.2) K/uL Immature Gran # (Auto) 0.01 (0.01-0.20) K/uL PT (9.0-12.0) Seconds INR (0.9-1.1) APTT (21.0-31.0) Seconds PTT Ratio Sodium (136-145) mmol/L Potassium (3.5-5.1) mmol/L Chloride (98-107) mmol/L Carbon Dioxide (21-32) mmol/L Anion Gap (3-11) BUN (6-23) mg/dl Creatinine (0.6-1.2) mg/dl Est Cr Clr Drug Dosing ml/min Est GFR ( Amer) ml/min Est GFR (Non-Af Amer) ml/min BUN/Creatinine Ratio (10-20) Glucose (70-99(Fasting)) mg/dl POC Glucose 77 (70-99) mg/dl Calcium (8.6-10.3) mg/dl Magnesium (1.7-2.4) mg/dl Total Bilirubin (0.2-1.0) mg/dl AST (13-39) U/L ALT (7-52) U/L Alkaline Phosphatase (34-104) U/L Total Protein (6.0-8.3) gm/dl Albumin (3.4-5.0) gm/dl Globulin (2.5-4.0) gm/dl Albumin/Globulin Ratio (0.9-2) SARS-CoV-2, RNA, NAAT (NEGATIVE) Blood Type O Positive Antibody Screen NEGATIVE 09/21/22 09/21/22 09/21/22 Range/Units 14:01 14:01 14:12 WBC (4.8-10.8) K/ul RBC (4.20-5.40) M/uL Hgb (12.0-16.0) g/dl Hct (37.0-47.0) % MCV (80.0-100.0) fL MCH (25.0-34.0) pg MCHC (32.0-36.0) g/dL RDW Std Deviation (36.4-46.3) fL RDW Coeff of Jenna (11.5-14.5) % Plt Count (130-400) K/uL MPV (9.4-12.4) fL Immature Gran % (Auto) % Neut % (Auto) % Lymph % (Auto) % Carlisle % (Auto) % Eos % (Auto) % Baso % (Auto) % Neut # (Auto) (1.40-6.50) K/uL Lymph # (Auto) (1.2-3.4) K/uL Carlisle # (Auto) (0.11-0.59) K/uL Eos # (Auto) (0-0.50) K/uL Baso # (Auto) (0-0.2) K/uL Immature Gran # (Auto) (0.01-0.20) K/uL PT 10.9 (9.0-12.0) Seconds INR 1.0 (0.9-1.1) APTT 26.6 (21.0-31.0) Seconds PTT Ratio 0.9 Sodium 134 L (136-145) mmol/L Potassium 4.0 (3.5-5.1) mmol/L Chloride 103 (98-107) mmol/L Carbon Dioxide 26 (21-32) mmol/L Anion Gap 5 (3-11) BUN 12 (6-23) mg/dl Creatinine 0.88 (0.6-1.2) mg/dl Est Cr Clr Drug Dosing 59.9 ml/min Est GFR ( Amer) 78.8 ml/min Est GFR (Non-Af Amer) 68.0 ml/min BUN/Creatinine Ratio 13.6 (10-20) Glucose 84 (70-99(Fasting)) mg/dl POC Glucose (70-99) mg/dl Calcium 8.3 L (8.6-10.3) mg/dl Magnesium 2.0 (1.7-2.4) mg/dl Total Bilirubin 0.4 (0.2-1.0) mg/dl AST 14 (13-39) U/L ALT 10 (7-52) U/L Alkaline Phosphatase 63 (34-104) U/L Total Protein 6.2 (6.0-8.3) gm/dl Albumin 3.6 (3.4-5.0) gm/dl Globulin 2.6 (2.5-4.0) gm/dl Albumin/Globulin Ratio 1.4 (0.9-2) SARS-CoV-2, RNA, NAAT NEGATIVE (NEGATIVE) Blood Type Antibody Screen Administered Medications Discontinued Medications Aspirin (Aspirin Chew 324 Mg) 324 mg PO NOW STA Stop: 09/21/22 14:52 Last Admin: 09/21/22 15:24 Dose: 324 mg Documented By: ZORAN Ioversol (Optiray 320 500ml) 120 ml IV ONCE ONE Stop: 09/21/22 13:53 Last Admin: 09/21/22 13:52 Dose: 120 ml Documented By: COLT Labetalol HCl (Labetalol Hcl Iv 5 Mg/Ml 20ml) Confirm Administered Dose 10 mg IV .STK-MED ONE Stop: 09/21/22 13:58 Last Admin: 09/21/22 14:02 Dose: Not Given Documented By: BA Imaging Data Radiologist's Impression: Head CT 09/21/22 13:29 CT SCAN OF THE BRAIN WITHOUT IV CONTRAST CLINICAL HISTORY: Neurological deficit. Stroke like symptoms. COMPARISON STUDY: No priors. TECHNIQUE: Unenhanced axial CT scan of the brain is performed from the vertex to the skull base. A dose lowering technique was utilized adhering to the principles of ALARA. FINDINGS: Brain parenchyma: There is age-related involutional change noting mild subcortical and periventricular microangiopathic disease. There is no hemorrhage, mass effect, or evidence of acute territorial ischemia by CT criteria. Melendez-white matter differentiation is preserved. No extra-axial fluid collection is seen. Ventricles, sulci, cisterns: Prominent secondary to involutional change. Intracranial vasculature: There is atherosclerotic calcification of the cavernous carotid arteries. Calvarium: Unremarkable. Sinuses and mastoids: There is mild mucosal thickening in the ethmoid sinuses. The remaining visualized paranasal sinuses are clear. The mastoid air cells are well pneumatized. Orbits: The bony orbits are grossly intact. IMPRESSION: There is no hemorrhage, mass effect, or evidence of acute territorial ischemia by CT criteria. ACT 112: Negative or not required by law. Electronically signed by: David Vanessa M.D. 09/21/2022 2:00 PM Head CTA 09/21/22 13:29 CTA ANGIOGRAPHY OF THE HEAD CLINICAL HISTORY: neuro deficit, acute stroke suspected COMPARISON STUDY: No previous studies for comparison. TECHNIQUE: Helical axial images of the head were obtained following uneventful intravenous administration of 120 cc of Optiray. Sagittal and coronal reconstructions were viewed as well as maximal intensity projections on an independent 3-D workstation. Automated exposure control was utilized for the study. A dose lowering technique was utilized adhering to the principles of ALARA. CT DOSE: 1125.08 mGy.cm FINDINGS: No acute intracranial hemorrhage is identified on the head CT which will be reported separately. Ventricular system is normal. Basal cisterns are patent. There are no extra-axial collections. The bilateral M1, M2, A1 and A2 segments are patent. 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 Posterior circulation is intact with no central vessel occlusion. There is no intracranial aneurysm. Major dural sinuses are patent. There is minimal plaque within the cavernous carotids. IMPRESSION: Unremarkable CTA of the head. No central vessel occlusion. No intracranial aneurysm. ACT 112: Negative or not required by law. Electronically signed by: Misael Izquierdo M.D. 09/21/2022 2:12 PM Neck CTA 09/21/22 13:29 NECK CTA HISTORY: neuro deficit, acute stroke suspected TECHNIQUE: Multiaxial CT images of the neck were performed following the intravenous administration of contrast to evaluate the major cervical vessels. Maximum intensity projection images were also obtained. All measurements were calculated based on NASCET criteria. A dose lowering technique was utilized adhering to the principles of ALARA. COMPARISON STUDY: None. FINDINGS: The aortic arch and proximal great vessels are widely patent. There is no significant stenosis, occlusion, or dissection identified within the bilateral common carotid, internal carotid, or vertebral arteries. There are few small thyroid nodules with the largest in the left measuring 11 mm. These do not meet CT criteria for follow-up. There is a focal bifurcation/fenestration within the distal right vertebral artery at the C3 level. This is considered to be a no rmal variant. IMPRESSION: No significant stenosis, occlusion, or dissection identified within the carotid or vertebral arteries. ACT 112: Negative or not required by law. Electronically signed by: Guzman Ghosh M.D. 09/21/2022 2:11 PM Discharge Plan Visit Data Chief Complaint: Stroke Alert Stated Complaint: STROKE SX ED Provider: David Gillette Discharge Problem: Acute left-sided weakness, Stroke-like symptoms Patient Disposition: Admitted As Inpatient Condition: Good Forms Stand Alone Forms: [facility] [place] [employer] Prescriptions Prescriptions: No Action lorazepam 0.5 mg tablet 0.5 mg PO DAILY PRN (Reason: anxiety) Qty: 30 0RF omeprazole 40 mg capsule,delayed release(DR/EC) 40 mg PO QAM Qty: 90 3RF citalopram 20 mg tablet 20 mg PO QAM Qty: 90 1RF rosuvastatin 10 mg tablet 10 mg PO QAM Qty: 90 1RF Referrals Referrals: Shawna Neely MD [Primary Care Provider] -
[2022-09-21 14:30] LABS: Partial Thromboplastin Ratio 0.9; Partial Thromboplastin Time 26.6 Seconds (21.0-31.0); Prothrombin Time 10.9 Seconds (9.0-12.0)
[2022-09-21 14:31] LABS: Albumin Level 3.6 gm/dl (3.4-5.0); Bilirubin,Total 0.4 mg/dl (0.2-1.0); Calcium 8.3 mg/dl (8.6-10.3)
[2022-09-21 14:37] LABS: Albumin Globulin Ratio 1.4 (0.9-2); BUN Creatinine Ratio 13.6 (10-20); Creatinine Clr Calc Pharmacy 59.9 ml/min; Est GFR (African American) 78.8 ml/min; Globulin 2.6 gm/dl (2.5-4.0); Total Protein 6.2 gm/dl (6.0-8.3)
[2022-09-21] MEDS ORDERED: ASPIRIN CHEW 324 MG PO STA (14:51)
--- NOTE | 2022-09-21 15:42 | History & Physical Report ---
Date of Service September 21, 2022 Assessment & Plan (1) Stroke-like symptoms: Plan: -Admit to med-tele -Currently stable -Noticed left upper and lower extremity weakness with leaning to the left while walking around 1030 am today -Stroke alert called, symptoms significantly improved on arrival, CT of the head and CTA of the head/neck negative for acute findings -[place] [facility] did not recommend TNK due to onset of symptoms and significant improvement on arrival -S/P 324 mg Aspirin in the ED, will continue with 81 mg Daily moving forward -Continue 10 mg daily Crestor for now, can increase dose if need based on am lipid panel tomorrow -Am A1c ordered -Will obtain MRI of the brain WO con and TTE for further evaluation -Will also obtain lyme antibodies to rule out other potential causes of her symptoms -Cannot rule out hypertensive emergency as she was noted to be hypertensive on arrival but stable without treatment at admission, will not treat HTN until MRI is back -q4h neuro checks, PT/OT consults placed -Nurse confirms she passed her dysphagia screen -BL SCD's and SQ lovenox for DVT PPX -AM CBC, BMP, Mag, A1C and lipid panel (2) Depression with anxiety: Plan: -Continue ciotalopram (3) HTN (hypertension): Plan: -Currently stable -Continue to monitor for now (4) Acid reflux disease: Plan: -Continue PPI Plan The patient was discussed with Dr. Aguilera at the time of the admission History of Present Illness Chief Complaint: stroke alert Primary Care Provider: Shawna Neely MD Fabiana is a 66 year old female with a PMH significant for Hyperlipidemia, GERD, and anxiety who presented to the [facility] ED via EMS as a stroke alert. Per the ED staff, the patient woke this am feeling weak. Around 1030 am today she tried to walk and felt weakness in her LLE and LUE. In the ED she was noted to be hypertensive at 195/105 but otherwise stable. Labs were significant for a sodium of 134, and covid [address] of the head was read as "There is no hemorrhage, mass effect, or evidence of acute territorial ischemia by CT criteria.". CTA of the head was read as "There is no hemorrhage, mass effect, or evidence of acute territorial ischemia by CT criteria.". And CTA of the neck was read as "No significant stenosis, occlusion, or dissection identified within the carotid or vertebral arteries.". By the time of arrival the patient's symptoms had nearly resolved. She was evaluated by [facility] who did NOT recommend TNK due to the onset of symptoms and significant improvement on arrival. They did recommend full dose aspirin (given in the ED), and daily low dose aspirin moving forward with continued stroke evaluation. At the time of the exam the exam the patient was sitting in bed in no acute distress. She states that she was in her normal state of health when she went to bed. This am she woke around 0700 and was able to walk to the bathroom without issue. She started getting ready for the day around 1030 when she started to noticed left lower and upper extremity weakness. She states that when walking she felt herself feeling off balance to the left and her LUE felt more weak than the right while doing laundry. She denies any headaches, changes in vision, hearing, taste, and smell, chest pain, numbness/tingling, SOB, cough, abd pain, nausea, vomiting, dysuria, hematuria, melena, diarrhea, LE swelling and recent falls or trauma. When asked, she did pull a tick off her right wrist approximately 2 weeks ago, she did not notice a developing rash but did not see medical treatment. She states that she feels much improved compared to the start of her symptoms, she still has some light left upper and lower extremity weakness but was able to walk to the bathroom without issue. She gets claustrophobic so will need something prn before her MRI. She denies a recent hx of smoking, did smoke for a short time approximately 30 years ago. She is a full code. Please refer to Dr. Aguilera's attestation for any changes to the treatment plan Allergies Allergy/AdvReac Type Severity Reaction Status Date / Time simvastatin [From Zocor] Allergy Unknown Rash Verified 08/28/21 09:17 atorvastatin [From Lipitor] AdvReac Unknown muscle Verified 08/28/21 09:17 aches oxycodone AdvReac Unknown Headache Verified 08/28/21 09:17 Home Medications Medication Instructions Recorded Confirmed Type lorazepam 0.5 mg tablet 0.5 mg PO DAILY PRN anxiety #30 06/15/19 09/21/22 Rx tabs omeprazole 40 mg capsule,delayed 40 mg PO QAM #90 caps 11/27/21 09/21/22 Rx release citalopram 20 mg tablet 20 mg PO QAM #90 tabs 07/14/22 09/21/22 Rx rosuvastatin 10 mg tablet 10 mg PO QAM #90 tabs 08/27/22 09/21/22 Rx 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 (not sure what kind) [place] [facility] [place] chemo/radiation Hyperlipidemia Obesity HANK (obstructive sleep apnea) Osteoarthritis Surgical History History of appendectomy History of colonoscopy History of esophagogastroduodenoscopy (EGD) History of left knee surgery History of repair of anterior cruciate ligament of right knee History of repair of left rotator cuff History of repair of right rotator cuff History of thumb surgery History of tooth extraction History of total hysterectomy with bilateral salpingo-oophorectomy (BSO) S/P shoulder surgery Status post right shoulder hemiarthroplasty Family History Mother Myocardial infarction Elevated blood sugar Other No family history of adverse response to anesthesia Denies family history of Ovarian cancer Prostate cancer Breast cancer Colorectal cancer Social History Smoking Status: Never smoker Second Hand Exposure: Yes (father smoked); Do You Dip or Chew Tobacco: No; Hx Alcohol Use: No Hx Substance Use: No Preferred Language: Armenian Communication Ability: Effective Visual Impairment: No Limitations Hearing Ability: Normal Telecommunications Administrator Required: No Beliefs That Will Affect Care: Orthodox Orthodox Beliefs: Anabaptism marital status: / Current Living Situation: Alone current occupational status: retired and disabled How many Children do You have: 1 Other Information That Helps Us Care for You: No Feels Safe at Home: Yes Safety Concerns: Feels Safe At This Time Childhood Exposure to Second-Hand Smoke: Yes Diet: regular caffeine: Yes during the past year weight has: remained stable Dental Care, Regularly: No Physical Activity Frequency: Does not Exercise Seatbelt Use: sometimes Sunscreen Use: Yes Assistive Devices: Denture - Upper, Denture - Lower and Glasses Physical Exam Physical Exam: Physical Exam: General: In no acute distress, stated age, well-nourished, good hygiene HEENT: Normocephalic, atraumatic, no scleral icterus, pupils around round, symmetrical, and reactive to light, moist mucus membranes, trachea midline, no thyromegaly Chest/Pulm: No respiratory distress, symmetrical chest expansion, clear breath sounds throughout Cardiac: RRR, no murmurs noted Abdomen: Negative for ascites and bruising, normoactive bowel sounds, soft, non-tender to palpation throughout Musculoskeletal: Symmetrical and without signs of acute trauma, upper and lower extremities with full ROM, no atrophy, spasticity, or flaccidity Extremities: Radial, dorsalis pedis, and posterior tibial pulses are intact and symmetrical, no edema noted in the BL LE's Skin: Warm, dry, no rashes , lesions, or scars noted Neuro: Alert and oriented to person, place, month, year, and president, no focal defects, CN II-XII tested and intact, finger to nose test negative BL, no tremors noted, 5+ strenght in the right upper and lower extremities, 4+ strength in the left upper and lower extrmeities Psych: No acute distress, calm and cooperative during the exam Results & Data Results & Data Vital Signs (Past 12 Hours) Vital Signs Temp Pulse Resp BP Pulse Ox 09/21/22 14:53 69 24 96 09/21/22 14:51 67 16 96 09/21/22 14:45 66 18 95 09/21/22 14:40 152/93 H 09/21/22 14:40 67 17 96 09/21/22 14:30 63 13 95 09/21/22 14:30 154/97 H 09/21/22 14:20 195/105 H 09/21/22 14:20 65 16 96 09/21/22 14:15 67 14 95 09/21/22 14:10 179/123 H 09/21/22 14:10 65 20 95 09/21/22 14:04 164/80 H 09/21/22 14:04 71 13 96 09/21/22 14:00 69 16 95 09/21/22 13:56 74 20 98 05/30/23 13:59 75 09/21/22 14:06 36.8 C 66 18 99 Laboratory Results Abnormal lab results 09/21/22 09/21/22 09/21/22 Range/Units 14:01 14:01 15:25 MPV 9.0 L (9.4-12.4) fL [place] # (Auto) 0.76 H (0.11-0.59) K/uL Sodium 134 L (136-145) mmol/L Calcium 8.3 L (8.6-10.3) mg/dl Ur Specific [place] 1.043 H (1.000-1.030) Urine Blood Trace H (Negative) Diagnostic Findings Head CT 09/21/22 13:29 CT SCAN OF THE BRAIN WITHOUT IV CONTRAST CLINICAL HISTORY: Neurological deficit. Stroke like symptoms. COMPARISON STUDY: No priors. TECHNIQUE: Unenhanced axial CT scan of the brain is performed from the vertex to the skull base. A dose lowering technique was utilized adhering to the principles of ALARA. FINDINGS: Brain parenchyma: There is age-related involutional change noting mild subcortical and periventricular microangiopathic disease. There is no hemorrhage, mass effect, or evidence of acute territorial ischemia by CT criteria. Melendez-white matter differentiation is preserved. No extra-axial fluid collection is seen. Ventricles, sulci, cisterns: Prominent secondary to involutional change. Intracranial vasculature: There is atherosclerotic calcification of the cavernous carotid arteries. Calvarium: Unremarkable. Sinuses and mastoids: There is mild mucosal thickening in the ethmoid sinuses. The remaining visualized paranasal sinuses are clear. The mastoid air cells are well pneumatized. Orbits: The bony orbits are grossly intact. IMPRESSION: There is no hemorrhage, mass effect, or evidence of acute territorial ischemia by CT criteria. ACT 112: Negative or not required by law. Electronically signed by: David Vanessa M.D. 09/21/2022 2:00 PM Head CTA 09/21/22 13:29 CTA ANGIOGRAPHY OF THE HEAD CLINICAL HISTORY: neuro deficit, acute stroke suspected COMPARISON STUDY: No previous studies for comparison. TECHNIQUE: Helical axial images of the head were obtained following uneventful intravenous administration of 120 cc of Optiray. Sagittal and coronal reconstructions were viewed as well as maximal intensity projections on an independent 3-D workstation. Automated exposure control was utilized for the study. A dose lowering technique was utilized adhering to the principles of ALARA. CT DOSE: 1125.08 mGy.cm FINDINGS: No acute intracranial hemorrhage is identified on the head CT which will be reported separately. Ventricular system is normal. Basal cisterns are patent. There are no extra-axial collections. The bilateral M1, M2, A1 and A2 segments are patent. 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 Posterior circulation is intact with no central vessel occlusion. There is no intracranial aneurysm. Major dural sinuses are patent. There is minimal plaque within the cavernous carotids. IMPRESSION: Unremarkable CTA of the head. No central vessel occlusion. No intracranial aneurysm. ACT 112: Negative or not required by law. Electronically signed by: Misael Izquierdo M.D. 09/21/2022 2:12 PM Neck CTA 09/21/22 13:29 NECK CTA HISTORY: neuro deficit, acute stroke suspected TECHNIQUE: Multiaxial CT images of the neck were performed following the intravenous administration of contrast to evaluate the major cervical vessels. Maximum intensity projection images were also obtained. All measurements were calculated based on NASCET criteria. A dose lowering technique was utilized adhering to the principles of ALARA. COMPARISON STUDY: None. FINDINGS: The aortic arch and proximal great vessels are widely patent. There is no significant stenosis, occlusion, or dissection identified within the bilateral common carotid, internal carotid, or vertebral arteries. There are few small thyroid nodules with the largest in the left measuring 11 mm. These do not meet CT criteria for follow-up. There is a focal bifurcation/fenestration within the distal right vertebral artery at the C3 level. This is considered to be a normal variant. IMPRESSION: No significant stenosis, occlusion, or dissection identified within the carotid or vertebral arteries. ACT 112: Negative or not required by law. Electronically signed by: Guzman Ghosh M.D. 09/21/2022 2:11 PM ECG Additional Comments: Normal sinus rhythm Normal ECG When compared with ECG of 11-JUL-2020 09:35, No significant change was found Code Status & VTE Plan Code Status Full code VTE Prophylaxis Plan VTE Prophylaxis will be ordered: Yes Supervising Physician Co-Signing Physician Notes Patient seen and examined, chart reviewed, case discussed with Edi Verduzco PA-C and I agree with the assessment and plan as above except as otherwise noted Labs and images reviewed Fabiana is a 66-year-old female who presented with left upper and left lower extremity weakness and a feeling of off balance without room spinning around 1030. Patient did present as a stroke alert, had significant improvement in symptoms which were around 80% resolved by time of evaluation, TNKase was not recommended. She received a full dose aspirin. At time of bedside assessment she feels her strength is mostly normal but has a little bit of fussiness and "weird feeling "which remains in her left upper arm. Breathing is unlabored, heart rate is regular, she has no chest pain or chest pressure. No headache. Recommend continuing aspirin 81 mg daily for at least 3 weeks, reasonable to do 3 weeks of DAPT and then monotherapy. No significant carotid disease noted. Permissive hypertension parameters goal 220/120 for first 24 hours. Agree with assessment and management as above. PG Care Time/CCT Total # of Minutes Spent Total Time Spent with Patient: Total time spent is greater than 50% in coordination of care (as documented) at patient's floor/unit and/or counseling patient: Coding [place] [address] INT INP/OBS CARE 3/75MIN Patient Type Established Medical Decision Making High Complexity Diagnoses Stroke-like symptoms R29.90 Depression with anxiety F41.8 HTN (hypertension) I10 Acid reflux disease K21.9
[2022-09-21] MEDS ORDERED: PHARMACIST DISCHARGE MED REC CONSULT PRN (15:43)
[2022-09-21] MEDS ORDERED: LORazepam 2 MG/1 ML VIAL IV PRN (16:00)
[2022-09-21 16:07] LABS: Troponin I High Sensitivity 2.8 pg/ml (0-14)
[2022-09-21 16:08] LABS: Appearance Urine Clear (Clear); Bacteria Urine Automated Negative (Negative); Bilirubin Urine Negative (Negative); Blood Urine Trace (Negative); Cast Urine Automated 0 /lpf (0-5); Color Urine Yellow; Epithelial Cell Urine Auto 0-5 /lpf (0-5); Glucose Urine UA Negative (Negative); Ketones Urine Negative (Negative); Leukocyte Esterase Urine Negative (Negative); Nitrite Urine Negative (Negative); Protein Urine Negative (Negative); RBC Urine Automated 0-4 /hpf (0-4); Specific Gravity Urine 1.043 (1.000-1.030); Urobilinogen Urine Negative (Negative); WBC Urine Automated 0 /hpf (0-5); pH Urine 7.5 (4.5-7.5)
--- NOTE | 2022-09-21 16:14 | Electrocardiogram Report ---
Test Reason : Blood Pressure : / mmHG Vent. Rate : 070 BPM Atrial Rate : 070 BPM P-R Int : 152 ms QRS Dur : 082 ms QT Int : 414 ms P-R-T Axes : 023 011 050 degrees QTc Int : 447 ms Normal sinus rhythm Normal ECG When compared with ECG of 11-JUL-2020 09:35, No significant change was found Confirmed by Jamshid Yeboah ([id number]) on 09/21/2022 4:14:28 PM Referred By: REFERRED SELF Confirmed By:Jamshid Yeboah
[2022-09-21 17:36] LABS: Lyme Ab IgG w/WB Rflx Negative (Negative); Lyme Ab IgM w/WB Rflx Negative (Negative)
--- NOTE | 2022-09-21 17:56 | Magnetic Resonance Report ---
MRI OF THE BRAIN WITHOUT IV CONTRAST CLINICAL HISTORY: Strokelike symptoms. COMPARISON STUDY: CT of the brain dated 09/21/2022. TECHNIQUE: MRI of the brain was performed utilizing various T1 and T2-weighted sequences in the axial , sagittal, and coronal planes. IV contrast was not administered for this examination. FINDINGS: Brain parenchyma: There is a subcentimeter focus of apparent restricted diffusion in the right environmental field office manager ior frontal cortex, best seen on axial image #16. This could not be corroborated on the ADC maps and is indeterminant. A small focus of ischemia is not excluded. No additional foci of restricted diffusi on are identified. There is no hemorrhage or mass effect. There is age-related involutional change no ting mild microangiopathic disease. No extra-axial fluid collection is seen. The cerebellar tonsils a re normal in configuration. Ventricles, sulci, and cisterns: Prominent secondary to fluid-filled change. Pituitary and sella: Unremarkable. Intracranial vasculature: Normal flow voids are maintained at the skull base. Orbits: The bony orbits are grossly intact. Orbital contents are normal in appearance. Sinuses and mastoids: There is opacification of the left posterior ethmoid sinus. The remaining paran marquis sinuses are clear. There is trace left mastoid effusion. Calvarium: Unremarkable. Cervical cord: Partially visualized cervical spinal cord is normal in morphology and signal intensity . IMPRESSION: 1. There is an apparent subcentimeter focus of restricted diffusion identified in the posterior right frontal lobe cortex. This could not be corroborated on the ADC map and is indeterminate. A tiny focu s of acute to subacute ischemia is not excluded and clinical correlation will be required. 2. No additional foci of restricted diffusion are identified. 3. There is no hemorrhage or mass effect. ACT 112: Negative or not required by law. Electronically signed by: David Vanessa M.D. 09/21/2022 5:54 PM
[2022-09-21] MEDS ORDERED: LABETALOL HCL IV 5 MG/ML 20ML IV PRN (19:40)
[2022-09-21] MEDS ORDERED: ACETAMINOPHEN 500 MG TAB PO PRN (20:41)
[2022-09-21] MEDS ORDERED: ENOXAPARIN INJ 40 MG/0.4 ML SYR SQ SCH (21:00)
[2022-09-21] MEDS ORDERED: MoRPHine SULFATE 2 MG/ML CARP IV STA (23:10)
--- NOTE | 2022-09-22 08:30 | Hospitalist Progress Note ---
Date of Service September 22, 2022 Assessment & Plan (1) Stroke-like symptoms: Plan: -Admit to med-tele -Currently stable -Noticed left upper and lower extremity weakness with leaning to the left while walking around 1030 am today -Stroke alert called, symptoms significantly improved on arrival, CT of the head and CTA of the head/neck negative for acute findings -[place] telestroke did not recommend TNK due to onset of symptoms and significant improvement on arrival -S/P 324 mg Aspirin in the ED, will continue with 81 mg Daily moving forward -Continue 10 mg daily Crestor for now, can increase dose if need based on am lipid panel tomorrow -Am A1c ordered -Will obtain MRI of the brain WO con and TTE for further evaluation -Will also obtain lyme antibodies to rule out other potential causes of her symptoms -Cannot rule out hypertensive emergency as she was noted to be hypertensive on arrival but stable without treatment at admission, will not treat HTN until MRI is back -q4h neuro checks, PT/OT consults placed -Nurse confirms she passed her dysphagia screen -BL SCD's and SQ lovenox for DVT PPX -AM CBC, BMP, Mag, A1C and lipid panel 09/22 - mri w/ There is an apparent subcentimeter focus of restricted diffusion identified in the posterior right frontal lobe cortex. This could not be corroborated on the ADC map and is indeterminate. A tiny focus of acute to subacute ischemia is not excluded and clinical correlation will be required. Neurology consulted Permissive HTN, currently 157/82 Continue ASA daily (new med, crestor 10mg)- consider DAPT x 3 weeks, then ASA alone Lipid panel/A1c pending ECHO pending (2) Depression with anxiety: Plan: -Continue ciotalopram (3) HTN (hypertension): Plan: -Currently stable -Continue to monitor for now (4) Acid reflux disease: Plan: -Continue PPI Plan The patient was discussed with Dr. Aguilera at the time of the admission Admission and Anticipated Discharge Date Admission Date: September 21, 2022 Results & Data Results & Data Vital Signs (Past 12 Hours) Vital Signs Temp Pulse Pulse Resp BP Pulse Ox O2 Del Method 09/22/22 06:01 71 09/22/22 07:09 36.7 C 69 16 157/82 H 95 Room Air 09/22/22 04:29 36.8 C 68 18 117/82 95 Room Air 09/22/22 00:28 67 09/21/22 23:21 36.6 C 64 18 134/89 94 Room Air Laboratory Results 09/21/22 09/21/22 09/21/22 Range/Units 16:20 16:20 16:20 WBC (4.8-10.8) K/ul RBC (4.20-5.40) M/uL Hgb (12.0-16.0) g/dl Hct (37.0-47.0) % MCV (80.0-100.0) fL MCH (25.0-34.0) pg MCHC (32.0-36.0) g/dL RDW Std Deviation (36.4-46.3) fL RDW Coeff of Jenna (11.5-14.5) % Plt Count (130-400) K/uL MPV (9.4-12.4) fL Immature Gran % (Auto) % Neut % (Auto) % Lymph % (Auto) % Ulster % (Auto) % Eos % (Auto) % Baso % (Auto) % Neut # (Auto) (1.40-6.50) K/uL Lymph # (Auto) (1.2-3.4) K/uL Ulster # (Auto) (0.11-0.59) K/uL Eos # (Auto) (0-0.50) K/uL Baso # (Auto) (0-0.2) K/uL Immature Gran # (Auto) (0.01-0.20) K/uL PT (9.0-12.0) Seconds INR (0.9-1.1) APTT (21.0-31.0) Seconds PTT Ratio Sodium (136-145) mmol/L Potassium (3.5-5.1) mmol/L Chloride (98-107) mmol/L Carbon Dioxide (21-32) mmol/L Anion Gap (3-11) BUN (6-23) mg/dl Creatinine (0.6-1.2) mg/dl Est Cr Clr Drug Dosing ml/min Est GFR ( Amer) ml/min Est GFR (Non-Af Amer) ml/min BUN/Creatinine Ratio (10-20) Glucose (70-99(Fasting)) mg/dl POC Glucose (70-99) mg/dl Calcium (8.6-10.3) mg/dl Magnesium (1.7-2.4) mg/dl Total Bilirubin (0.2-1.0) mg/dl AST (13-39) U/L ALT (7-52) U/L Alkaline Phosphatase (34-104) U/L Troponin I High Sens (0-14) pg/ml Total Protein (6.0-8.3) gm/dl Albumin (3.4-5.0) gm/dl Globulin (2.5-4.0) gm/dl Albumin/Globulin Ratio (0.9-2) Urine Color Urine Appearance (Clear) Urine pH (4.5-7.5) Ur Specific Wood (1.000-1.030) Urine Protein (Negative) Urine Glucose (UA) (Negative) Urine Ketones (Negative) Urine Blood (Negative) Urine Nitrite (Negative) Urine Bilirubin (Negative) Urine Urobilinogen (Negative) Ur Leukocyte Esterase (Negative) Urine WBC (Auto) (0-5) /hpf Urine RBC (Auto) (0-4) /hpf U Hyaline Cast (Auto) (0-5) /lpf U Epithel Cells (Auto) (0-5) /lpf Urine Bacteria (Auto) (Negative) Anaplasma Smear See Comment Babesia Smear See Comment Babesia microti DNA PCR Pending Lyme Disease IgG Ab Negative (Negative) Lyme Disease IgM Ab Negative (Negative) SARS-CoV-2, RNA, NAAT (NEGATIVE) Blood Type Antibody Screen 09/21/22 09/21/22 09/21/22 Range/Units 15:25 14:12 14:01 WBC (4.8-10.8) K/ul RBC (4.20-5.40) M/uL Hgb (12.0-16.0) g/dl Hct (37.0-47.0) % MCV (80.0-100.0) fL MCH (25.0-34.0) pg MCHC (32.0-36.0) g/dL RDW Std Deviation (36.4-46.3) fL RDW Coeff of Jenna (11.5-14.5) % Plt Count (130-400) K/uL MPV (9.4-12.4) fL Immature Gran % (Auto) % Neut % (Auto) % Lymph % (Auto) % Ulster % (Auto) % Eos % (Auto) % Baso % (Auto) % Neut # (Auto) (1.40-6.50) K/uL Lymph # (Auto) (1.2-3.4) K/uL [place]ster # (Auto) (0.11-0.59) K/uL Eos # (Auto) (0-0.50) K/uL Baso # (Auto) (0-0.2) K/uL Immature Gran # (Auto) (0.01-0.20) K/uL PT (9.0-12.0) Seconds INR (0.9-1.1) APTT (21.0-31.0) Seconds PTT Ratio Sodium 134 L (136-145) mmol/L Potassium 4.0 (3.5-5.1) mmol/L Chloride 103 (98-107) mmol/L Carbon Dioxide 26 (21-32) mmol/L Anion Gap 5 (3-11) BUN 12 (6-23) mg/dl Creatinine 0.88 (0.6-1.2) mg/dl Est Cr Clr Drug Dosing 59.9 ml/min Est GFR ( Amer) 78.8 ml/min Est GFR (Non-Af Amer) 68.0 ml/min BUN/Creatinine Ratio 13.6 (10-20) Glucose 84 (70-99(Fasting)) mg/dl POC Glucose (70-99) mg/dl Calcium 8.3 L (8.6-10.3) mg/dl Magnesium 2.0 (1.7-2.4) mg/dl Total Bilirubin 0.4 (0.2-1.0) mg/dl AST 14 (13-39) U/L ALT 10 (7-52) U/L Alkaline Phosphatase 63 (34-104) U/L Troponin I High Sens 2.8 (0-14) pg/ml Total Protein 6.2 (6.0-8.3) gm/dl Albumin 3.6 (3.4-5.0) gm/dl Globulin 2.6 (2.5-4.0) gm/dl Albumin/Globulin Ratio 1.4 (0.9-2) Urine Color Yellow Urine Appearance Clear (Clear) Urine pH 7.5 (4.5-7.5) Ur Specific Wood 1.043 H (1.000-1.030) Urine Protein Negative (Negative) Urine Glucose (UA) Negative (Negative) Urine Ketones Negative (Negative) Urine Blood Trace H (Negative) Urine Nitrite Negative (Negative) Urine Bilirubin Negative (Negative) Urine Urobilinogen Negative (Negative) Ur Leukocyte Esterase Negative (Negative) Urine WBC (Auto) 0 (0-5) /hpf Urine RBC (Auto) 0-4 (0-4) /hpf U Hyaline Cast (Auto) 0 (0-5) /lpf U Epithel Cells (Auto) 0-5 (0-5) /lpf Urine Bacteria (Auto) Negative (Negative) Anaplasma Smear Babesia Smear Babesia microti DNA PCR Lyme Disease IgG Ab (Negative) Lyme Disease IgM Ab (Negative) SARS-CoV-2, RNA, NAAT NEGATIVE (NEGATIVE) Blood Type Antibody Screen 09/21/22 09/21/22 09/21/22 Range/Units 14:01 14:01 14:01 WBC 4.94 (4.8-10.8) K/ul RBC 4.78 (4.20-5.40) M/uL Hgb 13.7 (12.0-16.0) g/dl Hct 41.8 (37.0-47.0) % MCV 87.4 (80.0-100.0) fL MCH 28.7 (25.0-34.0) pg MCHC 32.8 (32.0-36.0) g/dL RDW Std Deviation 39.4 (36.4-46.3) fL RDW Coeff of Jenna 12.3 (11.5-14.5) % Plt Count 287 (130-400) K/uL MPV 9.0 L (9.4-12.4) fL Immature Gran % (Auto) 0.2 % Neut % (Auto) 39.7 % Lymph % (Auto) 41.7 % Ulster % (Auto) 15.4 % Eos % (Auto) 1.8 % Baso % (Auto) 1.2 % Neut # (Auto) 1.96 (1.40-6.50) K/uL Lymph # (Auto) 2.06 (1.2-3.4) K/uL [place]ster # (Auto) 0.76 H (0.11-0.59) K/uL Eos # (Auto) 0.09 (0-0.50) K/uL Baso # (Auto) 0.06 (0-0.2) K/uL Immature Gran # (Auto) 0.01 (0.01-0.20) K/uL PT 10.9 (9.0-12.0) Seconds INR 1.0 (0.9-1.1) APTT 26.6 (21.0-31.0) Seconds PTT Ratio 0.9 Sodium (136-145) mmol/L Potassium (3.5-5.1) mmol/L Chloride (98-107) mmol/L Carbon Dioxide (21-32) mmol/L Anion Gap (3-11) BUN (6-23) mg/dl Creatinine (0.6-1.2) mg/dl Est Cr Clr Drug Dosing ml/min Est GFR ( Amer) ml/min Est GFR (Non-Af Amer) ml/min BUN/Creatinine Ratio (10-20) Glucose (70-99(Fasting)) mg/dl POC Glucose (70-99) mg/dl Calcium (8.6-10.3) mg/dl Magnesium (1.7-2.4) mg/dl Total Bilirubin (0.2-1.0) mg/dl AST (13-39) U/L ALT (7-52) U/L Alkaline Phosphatase (34-104) U/L Troponin I High Sens (0-14) pg/ml Total Protein (6.0-8.3) gm/dl Albumin (3.4-5.0) gm/dl Globulin (2.5-4.0) gm/dl Albumin/Globulin Ratio (0.9-2) Urine Color Urine Appearance (Clear) Urine pH (4.5-7.5) Ur Specific Wood (1.000-1.030) Urine Protein (Negative) Urine Glucose (UA) (Negative) Urine Ketones (Negative) Urine Blood (Negative) Urine Nitrite (Negative) Urine Bilirubin (Negative) Urine Urobilinogen (Negative) Ur Leukocyte Esterase (Negative) Urine WBC (Auto) (0-5) /hpf Urine RBC (Auto) (0-4) /hpf U Hyaline Cast (Auto) (0-5) /lpf U Epithel Cells (Auto) (0-5) /lpf Urine Bacteria (Auto) (Negative) Anaplasma Smear Babesia Smear Babesia microti DNA PCR Lyme Disease IgG Ab (Negative) Lyme Disease IgM Ab (Negative) SARS-CoV-2, RNA, NAAT (NEGATIVE) Blood Type O Positive Antibody Screen NEGATIVE 09/21/22 Range/Units 13:58 WBC (4.8-10.8) K/ul RBC (4.20-5.40) M/uL Hgb (12.0-16.0) g/dl Hct (37.0-47.0) % MCV (80.0-100.0) fL MCH (25.0-34.0) pg MCHC (32.0-36.0) g/dL RDW Std Deviation (36.4-46.3) fL RDW Coeff of Jenna (11.5-14.5) % Plt Count (130-400) K/uL MPV (9.4-12.4) fL Immature Gran % (Auto) % Neut % (Auto) % Lymph % (Auto) % Ulster % (Auto) % Eos % (Auto) % Baso % (Auto) % Neut # (Auto) (1.40-6.50) K/uL Lymph # (Auto) (1.2-3.4) K/uL [place] # (Auto) (0.11-0.59) K/uL Eos # (Auto) (0-0.50) K/uL Baso # (Auto) (0-0.2) K/uL Immature Gran # (Auto) (0.01-0.20) K/uL PT (9.0-12.0) Seconds INR (0.9-1.1) APTT (21.0-31.0) Seconds PTT Ratio Sodium (136-145) mmol/L Potassium (3.5-5.1) mmol/L Chloride (98-107) mmol/L Carbon Dioxide (21-32) mmol/L Anion Gap (3-11) BUN (6-23) mg/dl Creatinine (0.6-1.2) mg/dl Est Cr Clr Drug Dosing ml/min Est GFR ( Amer) ml/min Est GFR (Non-Af Amer) ml/min BUN/Creatinine Ratio (10-20) Glucose (70-99(Fasting)) mg/dl POC Glucose 77 (70-99) mg/dl Calcium (8.6-10.3) mg/dl Magnesium (1.7-2.4) mg/dl Total Bilirubin (0.2-1.0) mg/dl AST (13-39) U/L ALT (7-52) U/L Alkaline Phosphatase (34-104) U/L Troponin I High Sens (0-14) pg/ml Total Protein (6.0-8.3) gm/dl Albumin (3.4-5.0) gm/dl Globulin (2.5-4.0) gm/dl Albumin/Globulin Ratio (0.9-2) Urine Color Urine Appearance (Clear) Urine pH (4.5-7.5) Ur Specific Wood (1.000-1.030) Urine Protein (Negative) Urine Glucose (UA) (Negative) Urine Ketones (Negative) Urine Blood (Negative) Urine Nitrite (Negative) Urine Bilirubin (Negative) Urine Urobilinogen (Negative) Ur Leukocyte Esterase (Negative) Urine WBC (Auto) (0-5) /hpf Urine RBC (Auto) (0-4) /hpf U Hyaline Cast (Auto) (0-5) /lpf U Epithel Cells (Auto) (0-5) /lpf Urine Bacteria (Auto) (Negative) Anaplasma Smear Babesia Smear Babesia microti DNA PCR Lyme Disease IgG Ab (Negative) Lyme Disease IgM Ab (Negative) SARS-CoV-2, RNA, NAAT (NEGATIVE) Blood Type Antibody Screen Diagnostic Findings Head CT 09/21/22 13:29 CT SCAN OF THE BRAIN WITHOUT IV CONTRAST CLINICAL HISTORY: Neurological deficit. Stroke like symptoms. COMPARISON STUDY: No priors. TECHNIQUE: Unenhanced axial CT scan of the brain is performed from the vertex to the skull base. A dose lowering technique was utilized adhering to the principles of ALARA. FINDINGS: Brain parenchyma: There is age-related involutional change noting mild subcortical and periventricular microangiopathic disease. There is no hemor rhage, mass effect, or evidence of acute territorial ischemia by CT criteria. Melendez-white matter differentiation is preserved. No extra-axial fluid collection is seen. Ventricles, sulci, cisterns: Prominent secondary to involutional change. Intracranial vasculature: There is atherosclerotic calcification of the cavernous carotid arteries. Calvarium: Unremarkable. Sinuses and mastoids: There is mild mucosal thickening in the ethmoid sinuses. The remaining visualized paranasal sinuses are clear. The mastoid air cells are well pneumatized. Orbits: The bony orbits are grossly intact. IMPRESSION: There is no hemorrhage, mass effect, or evidence of acute territorial ischemia by CT criteria. ACT 112: Negative or not required by law. Electronically signed by: David Vanessa M.D. 09/21/2022 2:00 PM Head CTA 09/21/22 13:29 CTA ANGIOGRAPHY OF THE HEAD CLINICAL HISTORY: neuro deficit, acute stroke suspected COMPARISON STUDY: No previous studies for comparison. TECHNIQUE: Helical axial images of the head were obtained following uneventful intravenous administration of 120 cc of Optiray. Sagittal and coronal reconstructions were viewed as well as maximal intensity projections on an independent 3-D workstation. Automated exposure control was utilized for the study. A dose lowering technique was utilized adhering to the principles of ALARA. CT DOSE: 1125.08 mGy.cm FINDINGS: No acute intracranial hemorrhage is identified on the head CT which will be reported separately. Ventricular system is normal. Basal cisterns are pa tent. There are no extra-axial collections. The bilateral M1, M2, A1 and A2 segments are patent. 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 Posterior circulation is intact with no central vessel occlusion. There is no intracranial aneurysm. Major dural sinuses are patent. There is minimal plaque within the cavernous carotids. IMPRESSION: Unremarkable CTA of the head. No central vessel occlusion. No intracranial aneurysm. ACT 112: Negative or not required by law. Electronically signed by: Misael Izquierdo M.D. 09/21/2022 2:12 PM Neck CTA 09/21/22 13:29 NECK CTA HISTORY: neuro deficit, acute stroke suspected TECHNIQUE: Multiaxial CT images of the neck were performed following the intravenous administration of contrast to evaluate the major cervical vessels. Maximum intensity projection images were also obtained. All measurements were calculated based on NASCET criteria. A dose lowering technique was utilized adhering to the principles of ALARA. COMPARISON STUDY: None. FINDINGS: The aortic arch and proximal great vessels are widely patent. There is no significant stenosis, occlusion, or dissection identified within the bilateral common carotid, internal carotid, or vertebral arteries. There are few small thyroid nodules with the largest in the left measuring 11 mm. These do not meet CT criteria for follow-up. There is a focal bifurcation/fenestration within the distal right vertebral artery at the C3 level. This is considered to be a normal variant. IMPRESSION: No significant stenosis, occlusion, or dissection identified within the carotid or vertebral arteries. ACT 112: Negative or not required by law. Electronically signed by: Guzman Ghosh M.D. 09/21/2022 2:11 PM Brain MRI 09/21/22 16:01 MRI OF THE BRAIN WITHOUT IV CONTRAST CLINICAL HISTORY: Strokelike symptoms. COMPARISON STUDY: CT of the brain dated 09/21/2022. TECHNIQUE: MRI of the brain was performed utilizing various T1 and T2-weighted sequences in the axial, sagittal, and coronal planes. IV contrast was not administered for this examination. FINDINGS: Brain parenchyma: There is a subcentimeter focus of apparent restricted diffusion in the right posterior frontal cortex, best seen on axial image #16. This could not be corroborated on the ADC maps and is indeterminant. A small fo cus of ischemia is not excluded. No additional foci of restricted diffusion are identified. There is no hemorrhage or mass effect. There is age-related involutional change noting mild microangiopathic disease. No extra-axial fluid collection is seen. The cerebellar tonsils are normal in configuration. Ventricles, sulci, and cisterns: Prominent secondary to fluid-filled change. Pituitary and sella: Unremarkable. Intracranial vasculature: Normal flow voids are maintained at the skull base. Orbits: The bony orbits are grossly intact. Orbital contents are normal in appearance. Sinuses and mastoids: There is opacification of the left posterior ethmoid sinus. The remaining paranasal sinuses are clear. There is trace left mastoid effusion. Calvarium: Unremarkable. Cervical cord: Partially visualized cervical spinal cord is normal in morphology and signal intensity. IMPRESSION: 1. There is an apparent subcentimeter focus of restricted diffusion identified in the posterior right frontal lobe cortex. This could not be corroborated on the ADC map and is indeterminate. A tiny focus of acute to subacute ischemia is not excluded and clinical correlation will be required. 2. No additional foci of restricted diffusion are identified. 3. There is no hemorrhage or mass effect. ACT 112: Negative or not required by law. Electronically signed by: David Vanessa M.D. 09/21/2022 5:54 PM PG Care Time/CCT Total # of Minutes Spent Total Time Spent with Patient: Total time spent is greater than 50% in coordination of care (as documented) at patient's floor/unit and/or counseling patient: Coding Diagnoses Stroke-like symptoms R29.90 Depression with anxiety F41.8 HTN (hypertension) I10 Acid reflux disease K21.9
[2022-09-22] MEDS: traMADol HCL 50 MG TABLET PO PRN ×2 (08:50→12:59)
[2022-09-22] MEDS ORDERED: ROSUVASTATIN CALCIUM 10 MG TAB PO SCH (09:00)
[2022-09-22] MEDS ORDERED: ASPIRIN 81 MG ECTAB PO SCH (09:00)
[2022-09-22] MEDS ORDERED: CITALOPRAM 20 MG TAB PO SCH (09:00)
[2022-09-22] MEDS ORDERED: PANTOprazole 40 MG TAB PO SCH (09:00)
--- NOTE | 2022-09-22 09:11 | Neurology Consultation ---
Date of Consultation September 22, 2022 Assessment & Plan (1) Embolic stroke: R frontal stroke on MRI appears to explain her left sided symptoms and is likely embolic. Echo is pending but if normal would send home on a zio patch/holter monitor. I agree that she should be on a daily aspirin for secondary stroke prevention. Would leave crestor at 10mg because of her history of statin intolerance, we would rather she be on a statin at any dose instead of develop side effects as she did to atorva and simvastatin. -- Continue aspirin 81mg daily -- Echo pending -- Continue crestor 10mg daily -- Zio patch/holter monitor to assess for occult afib -- Neurology follow-up in 4-6 weeks Telehealth Consultation Telehealth Information Telehealth Information: I performed this visit using a real-time telehealth connection between my location and the patients location ([facility]). After connecting through interactive tele-video, patient was identified by name and date of and/or wristband check.Patient (or authorized healthcare field representative) was informed that this was a telemedicine visit and it was being conducted confidentially over secure lines. My office door was closed and no one else was present in the room with me.Patient (or authorized healthcare field representative) provided consent to proceed with the visit, expressed an understanding of privacy and security of the telemedicine visit, and gave permission to have a hospital field representative in the room in order to assist with the visit and to conduct portions of the visit, as needed. I informed the patient (or authorized healthcare field representative) that I reviewed their record and presented the opportunity for them to ask any questions regarding the visit today. The patient agreed to participate. History of Present Illness Reason for Consultation: Left sided weakness Requesting Physician: Dr. Villarreal Attending Physician: Dulce Maria Villarreal MD History of Present Illness Fabiana Acuna is a 66 yo F presenting with left sided weakness that has since resolved. She reports that yesterday around 11am she noticed the symptoms and was leaning or pulling to the left when walking. Denies any speech or vision changes. No headache associated with the episode. No history of afib or palpitations. She has never had a stroke before. She does complain of chronic L arm pain and I note that she saw Dr. Webb in 2019 for an EMG of the left arm. She also has frequent shoulder surgeries for arthritis in that arm but this felt different yesterday. Allergies Allergy/AdvReac Type Severity Reaction Status Date / Time simvastatin [From Zocor] Allergy Unknown Rash Verified 08/28/21 09:17 atorvastatin [From Lipitor] AdvReac Unknown muscle Verified 08/28/21 09:17 aches oxycodone AdvReac Unknown Headache Verified 08/28/21 09:17 Home Medications Medication Instructions Recorded Confirmed Type lorazepam 0.5 mg tablet 0.5 mg PO DAILY PRN anxiety #30 06/15/19 09/21/22 Rx tabs omeprazole 40 mg capsule,delayed 40 mg PO QAM #90 caps 11/27/21 09/21/22 Rx release citalopram 20 mg tablet 20 mg PO QAM #90 tabs 07/14/22 09/21/22 Rx rosuvastatin 10 mg tablet 10 mg PO QAM #90 tabs 08/27/22 09/21/22 Rx Patient History Medical History Anxiety Chronic back pain Depression GERD (gastroesophageal reflux disease) controlled 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 (not sure what kind) removed at [facility] [place]no chemo/radiation Hyperlipidemia Obesity HANK (obstructive sleep apnea) Osteoarthritis Surgical History History of appendectomy History of colonoscopy History of esophagogastroduodenoscopy (EGD) History of left knee surgery History of repair of anterior cruciate ligament of right knee History of repair of left rotator cuff History of repair of right rotator cuff History of thumb surgery History of tooth extraction History of total hysterectomy with bilateral salpingo-oophorectomy (BSO) S/P shoulder surgery Status post right shoulder hemiarthroplasty Family History Mother Myocardial infarction Elevated blood sugar Other No family history of adverse response to anesthesia Denies family history of Ovarian cancer Prostate cancer Breast cancer Colorectal cancer Social History Smoking Status: Never smoker Second Hand Exposure: Yes (father smoked); Do You Dip or Chew Tobacco: No; Hx Alcohol Use: No Hx Substance Use: No Preferred Language: Portuguese Communication Ability: Effective Visual Impairment: No Limitations Hearing Ability: Normal Slip Operator Required: No Beliefs That Will Affect Care: Bahai Bahai Beliefs: Sabianist marital status: / Current Living Situation: Alone current occupational status: retired and disabled How many Children do You have: 1 Other Information That Helps Us Care for You: No Feels Safe at Home: Yes Safety Concerns: Feels Safe At This Time Childhood Exposure to Second-Hand Smoke: Yes Diet: regular caffeine: Yes during the past year weight has: remained stable Dental Care, Regularly: No Physical Activity Frequency: Does not Exercise Seatbelt Use: sometimes Sunscreen Use: Yes Assistive Devices: Denture - Upper, Denture - Lower and Glasses Review of Systems L arm pain Physical Exam Neurological Examination: Mental Status: Awake and alert. Oriented to person, place, and time. Fluent. Comprehension intact. Affect appropriate. Cranial Nerves: II: Reads NIHSS cards, nam grossly intact. III/IV/: Versions intact without nystagmus, no gaze preference. VII: Facial expression symmetric VIII: Hearing intact to voice IX/X: Palate elevates symmetrically XI: Shoulder shrug symmetric XII: Tongue midline Motor: Strength was symmetric and antigravity throughout. Pronator drift was absent. There were no abnormal movements. Coordination: Movements were nonataxic Reflexes: Unable to assess over telemedicine Results & Data Vital Signs (Past 12 Hours) Vital Signs Temp Pulse Pulse Resp BP Pulse Ox O2 Del Method 09/22/22 06:01 71 09/22/22 07:09 36.7 C 69 16 157/82 H 95 Room Air 09/22/22 04:29 36.8 C 68 18 117/82 95 Room Air 09/22/22 00:28 67 09/21/22 23:21 36.6 C 64 18 134/89 94 Room Air Laboratory Results Abnormal lab results 09/21/22 09/21/22 09/21/22 Range/Units 14:01 14:01 15:25 MPV 9.0 L (9.4-12.4) fL [place] # (Auto) 0.76 H (0.11-0.59) K/uL Sodium 134 L (136-145) mmol/L Calcium 8.3 L (8.6-10.3) mg/dl Ur Specific [place] 1.043 H (1.000-1.030) Urine Blood Trace H (Negative) Diagnostic Findings MRI brain - Small R infarct in the high R frontal lobe.
[2022-09-22 09:51] LABS: Basophils # (auto) 0.06 K/uL (0-0.2); Basophils % (auto) 1.5 %; Eosinophils # (auto) 0.11 K/uL (0-0.50); Eosinophils % (auto) 2.8 %; Hematocrit (blood only) 42.4 % (37.0-47.0); Lymphocytes # (auto) 1.82 K/uL (1.2-3.4); Lymphocytes % (auto) 46.7 %; Mean Corpuscular Hemoglobin 28.7 pg (25.0-34.0); Mean Corpuscular Volume 87.1 fL (80.0-100.0); Mean Platelet Volume 9.4 fL (9.4-12.4); Monocytes # (auto) 0.41 K/uL (0.11-0.59); Monocytes % (auto) 10.5 %; Neutrophils % (auto) 38.5 %; Platelet Count 324 K/uL (130-400); RDW Coefficient of Variation 12.5 % (11.5-14.5); RDW Standard Deviation 39.7 fL (36.4-46.3); Red Blood Count 4.87 M/uL (4.20-5.40)
[2022-09-22 10:14] LABS: Calcium 8.5 mg/dl (8.6-10.3); Magnesium 2.2 mg/dl (1.7-2.4)
[2022-09-22 10:20] LABS: BUN Creatinine Ratio 11.2 (10-20); Chol HDL Ratio 4.4 (0-5); Est GFR (African American) 77.7 ml/min; Est GFR (Non-African American) 67.1 ml/min
[2022-09-22 10:59] LABS: Estimated Average Glucose 131 mg/dl; Hemoglobin A1C 6.2 % (4.5-5.6)
--- NOTE | 2022-09-22 11:17 | Pharmacy Report ---
- Date of Service September 22, 2022 - Pharmacy CVA/TIA Medication Review Medications to Prevent Stroke handout has been added to the patients discharge packet. Antiplatelet(s) * aspirin 81 mg PO daily Cholesterol * Rosuvastatin 10 mg PO daily * High intensity statin deferred due to prior statin intolerance DVT Prophylaxis * Enoxaparin SQ Therapeutic Anticoagulation * No history of Afib/Aflutter noted Type 2 Diabetes * Patient does not have T2DM
--- NOTE | 2022-09-22 12:23 | XCELERA ---
[id number]
--- NOTE | 2022-09-22 13:50 | Discharge Summary ---
Date of Service September 22, 2022 Admission HPI Per Admitting Provider Fabiana is a 66 year old female with a PMH significant for Hyperlipidemia, GERD, and anxiety who presented to the [facility] ED via EMS as a stroke alert. Per the ED staff, the patient woke this am feeling weak. Around 1030 am today she tried to walk and felt weakness in her LLE and LUE. In the ED she was noted to be hypertensive at 195/105 but otherwise stable. Labs were significant for a sodium of 134, and covid [address] of the head was read as "There is no hemorrhage, mass effect, or evidence of acute territorial ischemia by CT criteria.". CTA of the head was read as "There is no hemorrhage, mass effect, or evidence of acute territorial ischemia by CT criteria.". And CTA of the neck was read as "No significant stenosis, occlusion, or dissection identified within the carotid or vertebral arteries.". By the time of arrival the patient's symptoms had nearly resolved. She was evaluated by [facility] who did NOT recommend TNK due to the onset of symptoms and significant improvement on arrival. They did recommend full dose aspirin (given in the ED), and daily low dose aspirin moving forward with continued stroke evaluation. At the time of the exam the exam the patient was sitting in bed in no acute distress. She states that she was in her normal state of health when she went to bed. This am she woke around 0700 and was able to walk to the bathroom without issue. She started getting ready for the day around 1030 when she started to noticed left lower and upper extremity weakness. She states that when walking she felt herself feeling off balance to the left and her LUE felt more weak than the right while doing laundry. She denies any headaches, changes in vision, hearing, taste, and smell, chest pain, numbness/tingling, SOB, cough, abd pain, nausea, vomiting, dysuria, hematuria, melena, diarrhea, LE swelling and recent falls or trauma. When asked, she did pull a tick off her right wrist approximately 2 weeks ago, she did not notice a developing rash but did not see medical treatment. She states that she feels much improved compared to the start of her symptoms, she still has some light left upper and lower extremity weakness but was able to walk to the bathroom without issue. She gets claustrophobic so will need something prn before her MRI. She denies a recent hx of smoking, did smoke for a short time approximately 30 years ago. She is a full code. Please refer to Dr. Aguilera's attestation for any changes to the treatment plan Admission Exam Per Admitting Provider Physical Exam: General:In no acute distress, stated age, well-nourished, good hygiene HEENT:Normocephalic, atraumatic, no scleral icterus, pupils around round, symmetrical, and reactive to light, moist mucus membranes, trachea midline, no thyromegaly Chest/Pulm:No respiratory distress, symmetrical chest expansion, clear breath sounds throughout Cardiac:RRR, no murmurs noted Abdomen:Negative for ascites and bruising, normoactive bowel sounds, soft, non-tender to palpation throughout Musculoskeletal:Symmetrical and without signs of acute trauma, upper and lower extremities with full ROM, no atrophy, spasticity, or flaccidity Extremities:Radial, dorsalis pedis, and posterior tibial pulses are intact and symmetrical, no edema noted in the BL LE's Skin:Warm, dry, no rashes , lesions, or scars noted Neuro:Alert and oriented to person, place, month, year, and president, no focal defects, CN II-XII tested and intact, finger to nose test negative BL, no tremors noted,5+ strenght in the right upper and lower extremities, 4+ strength in the left upper and lower extrmeities Psych:No acute distress, calm and cooperative during the exam Principal Diagnosis CVA Discharge Exam General: WD/WN female sitting up in bed, NAD HEENT: head normocephalic, atraumatic, pupils equal/reactive, mmm, trachea midline Resp: CTA, no w/c/r, on room air CV: RRR, +systolic murmur, no pitting edema/calf tenderness, pulses palpable GI: +BS, soft/NT : no hansen MSK/Neuro: no focal defects, CN II-XII tested and intact, finger to nose test negative BL, no tremors noted,strength equal throughout, slightly decreased strength 4/5 RUE compared to the LUE, no pronator drift, normal alternating movements, dudley-heel testing Skin: warm, dry Psych: AOx3, cooperative and pleasant with exam, wanting to go home Discharge Data Allergies Allergy/AdvReac Type Severity Reaction Status Date / Time simvastatin [From Zocor] Allergy Unknown Rash Verified 08/28/21 09:17 atorvastatin [From Lipitor] AdvReac Unknown muscle Verified 08/28/21 09:17 aches oxycodone AdvReac Unknown Headache Verified 08/28/21 09:17 Consultations 09/21/22 14:51 ED Decision to Admit Stat 09/22/22 08:22 Consult Neurology Routine Ordered Studies Head CT 09/21/22 13:29 CT SCAN OF THE BRAIN WITHOUT IV CONTRAST CLINICAL HISTORY: Neurological deficit. Stroke like symptoms. COMPARISON STUDY: No priors. TECHNIQUE: Unenhanced axial CT scan of the brain is performed from the vertex to the skull base. A dose lowering technique was utilized adhering to the principles of ALARA. FINDINGS: Brain parenchyma: There is age-related involutional change noting mild subcortical and periventricular microangiopathic disease. There is no hemorrhage, mass effect, or evidence of acute territorial ischemia by CT criteria. Melendez-white matter differentiation is preserved. No extra-axial fluid collection is seen. Ventricles, sulci, cisterns: Prominent secondary to involutional change. Intracranial vasculature: There is atherosclerotic calcification of the cavernous carotid arteries. Calvarium: Unremarkable. Sinuses and mastoids: There is mild mucosal thickening in the ethmoid sinuses. The remaining visualized paranasal sinuses are clear. The mastoid air cells are well pneumatized. Orbits: The bony orbits are grossly intact. IMPRESSION: There is no hemorrhage, mass effect, or evidence of acute territorial ischemia by CT criteria. ACT 112: Negative or not required by law. Electronically signed by: David Vanessa M.D. 09/21/2022 2:00 PM Head CTA 09/21/22 13:29 CTA ANGIOGRAPHY OF THE HEAD CLINICAL HISTORY: neuro deficit, acute stroke suspected COMPARISON STUDY: No previous studies for comparison. TECHNIQUE: Helical axial images of the head were obtained following uneventful intravenous administration of 120 cc of Optiray. Sagittal and coronal reconstructions were viewed as well as maximal intensity projections on an independent 3-D workstation. Automated exposure control was utilized for the study. A dose lowering technique was utilized adhering to the principles of ALARA. CT DOSE: 1125.08 mGy.cm FINDINGS: No acute intracranial hemorrhage is identified on the head CT which will be reported separately. Ventricular system is normal. Basal cisterns are patent. There are no extra-axial collections. The bilateral M1, M2, A1 and A2 segments are patent. 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 Posterior circulation is intact with no central vessel occlusion. There is no intracranial aneurysm. Major dural sinuses are patent. There is minimal plaque within the cavernous carotids. IMPRESSION: Unremarkable CTA of the head. No central vessel occlusion. No intracranial aneurysm. ACT 112: Negative or not required by law. Electronically signed by: Misael Izquierdo M.D. 09/21/2022 2:12 PM Neck CTA 09/21/22 13:29 NECK CTA HISTORY: neuro deficit, acute stroke suspected TECHNIQUE: Multiaxial CT images of the neck were performed following the intravenous administration of contrast to evaluate the major cervical vessels. Maximum intensity projection images were also obtained. All measurements were calculated based on NASCET criteria. A dose lowering technique was utilized adhering to the principles of ALARA. COMPARISON STUDY: None. FINDINGS: The aortic arch and proximal great vessels are widely patent. There is no significant stenosis, occlusion, or dissection identified within the bilateral common carotid, internal carotid, or vertebral arteries. There are few small thyroid nodules with the largest in the left measuring 11 mm. These do not meet CT criteria for follow-up. There is a focal bifurcation/fenestration within the distal right vertebral artery at the C3 level. This is considered to be a normal variant. IMPRESSION: No significant stenosis, occlusion, or dissection identified within the carotid or vertebral arteries. ACT 112: Negative or not required by law. Electronically signed by: Guzman Ghosh M.D. 09/21/2022 2:11 PM Brain MRI 09/21/22 16:01 MRI OF THE BRAIN WITHOUT IV CONTRAST CLINICAL HISTORY: Strokelike symptoms. COMPARISON STUDY: CT of the brain dated 09/21/2022. TECHNIQUE: MRI of the brain was performed utilizing various T1 and T2-weighted sequences in the axial, sagittal, and coronal planes. IV contrast was not administered for this examination. FINDINGS: Brain parenchyma: There is a subcentimeter focus of apparent restricted diffusion in the right posterior frontal cortex, best seen on axial image #16. This could not be corroborated on the ADC maps and is indeterminant. A small focus of ischemia is not excluded. No additional foci of restricted diffusion are identified. There is no hemorrhage or mass effect. There is age-related involutional change noting mild microangiopathic disease. No extra-axial fluid collection is seen. The cerebellar tonsils are normal in configuration. Ventricles, sulci, and cisterns: Prominent secondary to fluid-filled change. Pituitary and sella: Unremarkable. Intracranial vasculature: Normal flow voids are maintained at the skull base. Orbits: The bony orbits are grossly intact. Orbital contents are normal in appearance. Sinuses and mastoids: There is opacification of the left posterior ethmoid sinus. The remaining paranasal sinuses are clear. There is trace left mastoid effusion. Calvarium: Unremarkable. Cervical cord: Partially visualized cervical spinal cord is normal in morphology and signal intensity. IMPRESSION: 1. There is an apparent subcentimeter focus of restricted diffusion identified in the posterior right frontal lobe cortex. This could not be corroborated on the ADC map and is indeterminate. A tiny focus of acute to subacute ischemia is not excluded and clinical correlation will be required. 2. No additional foci of restricted diffusion are identified. 3. There is no hemorrhage or mass effect. ACT 112: Negative or not required by law. Electronically signed by: David Vanessa M.D. 09/21/2022 5:54 PM ECHOCARDIOGRAM 09/22/22 - No prior study for comparison. Injection of contrast documented NO interatrial shunt. LV systolic function is normal. EF 65-70%. LV wall motion is normal. Severe concentric LVH. Grade I diastolic dysfunction. RV is normal in size and function. Mild MR. Moderate to severe TR. RVSP elevated at 30-40mmhg. Hospital Course (1) Embolic stroke: Admitted after awakening to LUE/LLE weakness/leaning to left while walking. Stroke alert called, symptoms significantly improved on arrival and CT head/CTA head/neck negative for acute findings and [facility] telestroke did not recommend TNK due to onset of symptoms and significant improvement on arrival. s/p 324mg aspirin in ER, continued on 81mg daily MRI of brain did reveal evidence for embolic CVA -- an apparent subcentimeter focus of restricted diffusion identified in the posterior right frontal lobe cortex. This could not be corroborated on the ADC map and is indeterminate. A tiny focus of acute to subacute ischemia is not excluded and clinical correlation will be required. Neurology consulted-- patient to continue ASA 81mg daily, crestor 10mg daily (instructed to take at night. can consider increasing but per neurology to co ntinue current dose at present) A1c 6.2 -- prediabetes and will need f/u PCP. ECHO with NO interatrial shunt. Does note severe concentric LVH, likely from longstanding HTN -- discussed to monitor BPs at home but given acute CVA and BP stable 147/85 can start anti-HTN outpatient in follow up with PCP. CM arranged for holter monitor to look for any occult afib given embolic nature of CVA Outpt f/u Neurology 4-6 weeks Eval'd by PT/OT/speech and ok for return home (2) Stroke-like symptoms: as above, CVA on MRI ASA 81mg daily at d/c, crestor, neuro follow up (3) Depression with anxiety: mood stable Continued citalopram (4) HTN (hypertension): Stable, permissive HTN following CVA Low Na diet at d/c, monitoring BP -- f/u PCP and if elevated above goal should be started on anti-HTN agents (5) Acid reflux disease: Continued PPI Plan patient discharge on asa 81mg daily, continue current dose crestor f/u PCP regarding pre-DM/counseling f/u PCP and addition of anti-HTN if BPs remaining elevated given concentric LVH but given acute CVA allowing permissive HTN as symptoms resolved at present event monitor arranged at d/c to eval for any occult afib given embolic nature of CVA Total Time Total Time Spent Total Time Spent (In Minutes): 45 Discharge Plan Discharge Items Patient Disposition: Home - Self-Care Reason For Visit: STROKE ALERT Discharge Diagnosis: Stroke Condition on Discharge: Good Goals: You have been hospitalized for an acute medical problem. During your stay at [facility], we have made an effort to correct the problem that brought you to the hospital while keeping you as comfortable as possible. Medications were used to bring your condition under control and your discharge instructions will include directions for any medications you should take after leaving the hospital. Please make sure you see your Primary Care Provider as part of your follow up plan. Activity: As commented below Non-emergency contact: Primary Care Provider and Neurologist Call non-emergency contact if: you have any medication questions Follow-up/Referrals: Edi Webb MD [Physician] - (4-6 weeks) Shawna Neely MD [Primary Care Provider] - 09/29/22 12:00 pm Diet: Heart Healthy and Low Sodium (2gm) Addtl Attending Provider Instructions: You have been hospitalized for concerns for a stroke. CT imaging was negative, but MRI did show evidence for a stroke. Neurology was consulted and it is recommended you continue a baby aspirin 81mg daily. You should continue your crestor 10mg daily but as discussed you may be better off taking this at night. You should monitor your blood pressures and maintain a low salt diet to help with these but if your pressures are elevated in follow up you will ideally benefit from addition of medication for blood pressure control. Your A1c level (measures for diabetes) does show you are pre-diabetic. You should try and limit sweets/carbohydrates and should have close follow up with Dr Neely for continued monitoring. We have also arranged for a holter monitor to be delivered which will help to monitor for any underlying arrhythmia like atrial fibrillation which would require switching from aspirin to something like eliquis or xarelto, however you did not have any evidence for such on the heart monitor during admission. You should have follow up with primary care in the next 7-10 days after discharge to monitor your progress. You should also have follow up with neurology in the next 4-6 weeks to monitor your progress. It has been a pleasure being a part of the medical team providing for you while you have been in the hospital. Take care! Addtl Vice President Quality Provider Instructions: Risk Factors for Stroke: You can reduce your chances of stroke by working with your medical provider to adopt a healthy lifestyle. Some specific ways to lower your chance of stroke are: * If you are a smoker, now is the time to stop smoking cigarettes * If you are diabetic, improve the control of your blood sugars * Avoid excessive amounts of alcohol * Control high blood pressure * Lose weight if you are overweight * Be sure to lead an active lifestyle * Eat a healthy diet low in salt, cholesterol and fat You should know about other risk factors for stroke that you are unable to control. These include: * Age 55 years or older * Male gender * Certain racial groups: , or / * Family History of Stroke, Mini stroke or Heart Attack * Sickle Cell Disease Follow Up: It is important for you to keep your follow up appointments with your medical provider. Who to Call and When: Medical Emergencies: Call 911 immediately if you experience any of the following warning signs and symptoms of Stroke: * Sudden numbness or weakness of the face, arm or leg, especially on one side of the body * Sudden confusion, trouble speaking or understanding * Sudden trouble seeing in one or both eyes * Sudden trouble walking, dizziness, loss of balance or coordination * Sudden severe headache with no cause Do not delay calling 911 if you experience any warning signs or symptoms of a stroke. Delay in seeking medical attention may affect what treatments can be given to you. . Pending Studies at Discharge: Yes Studies:: Christina PCR Stand-Alone Forms: My [facility], Medications to Prevent Stroke Medications and DC Order Prescriptions: New aspirin 81 mg Tablet,Delayed Release (Dr/Ec) 81 mg PO DAILY Qty: 30 0RF tramadol 50 mg Tablet 50 mg PO Q4H PRN (Reason: pain) Qty: 10 0RF Continued lorazepam 0.5 mg tablet 0.5 mg PO DAILY PRN (Reason: anxiety) Qty: 30 0RF omeprazole 40 mg capsule,delayed release(DR/EC) 40 mg PO QAM Qty: 90 3RF citalopram 20 mg tablet 20 mg PO QAM Qty: 90 1RF Changed rosuvastatin 10 mg tablet 10 mg PO HS Qty: 90 1RF Discharge Orders: Discharge Order (Routine); Ordered 09/22/22 Ordered By: Audra Smith/Other Patient Handouts: Taking NSAIDs Safely, Prediabetes, Symptoms of Stroke, 5 Steps for Eating Healthier, Stroke: Self-Care, Discharge Instructions for Stroke, Risk Factors for Stroke Admission Data Admit Date/Time: 09/21/22 15:42 Attending Provider: Dulce Maria Villarreal Admit Provider: Donovan Aguilera Primary Care Provider: Shawna Neely Other Providers: Donovan Aguilera Other Interventions: Discharge Summary Assessment (RN) Last Done: 09/22/22 14:07 Supervising Physician Co-Signing Physician Notes PA Supervision Note: I did not personally see or examine the patient today as patient was discharged before I could see her, but I verified all camacho points of DEVANTE Jovel's assessment and plan with the following exceptions/additions: None Coding Level of Care Code 12773 INP/OBS DISCH >30 MIN Diagnoses Embolic stroke I63.9 Stroke-like symptoms R29.90 Depression with anxiety F41.8 HTN (hypertension) I10 Acid reflux disease K21.9
[2022-09-22] MEDS ORDERED: STROKE PATIENT DISCHARGE STA (13:51)
[2022-09-25 06:23] LABS: Babesia microti DNA Not Detected (Not Detected)
== END 2022-09-22 15:19 | disposition home or self-care (01) | DRG 65 ==
LOC: ED 13:42 → 2W 15:42 → SUATTDRO 15:42 → 2W 16:55